=== PATIENT | female | born 1955 | race Caucasian/White ===

== ENCOUNTER 2024-10-28 18:16 | Inpatient (IN) | payer MEDICARE, BC, SELFPAY ==
[2024-10-28] VITALS (34 sets, daily range): BP systolic 125–162; BP diastolic 63–96; BMI 26.0
[2024-10-28 15:49] LABS: Glucose - Point of Care 108 mg/dl (70-99)
[2024-10-28 16:09] LABS: % Basophils 1.1 % (0-2); % Eosinophils 3.4 % (0-6); % Immature Granulocytes 0.3 % (0-0.5); % Lymphocytes 26.4 % (20.5-51.1); % Monocytes 11.8 % (1.7-9.3); Absolute Basophils 0.1 10^3/uL (0-0.2); Absolute Eosinophils 0.2 10^3/uL (0-0.7); Absolute Lymphocytes 1.9 10^3/uL (1.2-3.4); Absolute Monocytes 0.8 10^3/uL (0.1-0.6); Hematocrit 39.1 % (37.0-47.0); Hemoglobin 13.1 g/dL (12.0-16.0); Mean Corp Hgb Conc. 33.5 g/dL (33.0-37.0); Mean Corpuscular Hgb 29.5 pg (27.0-31.0); Mean Corpuscular Volume 88.1 fL (81.0-99.0); Mean Platelet Volume 10.8 fL (7.4-10.4); Nucleated Red Blood Cells % 0 %; Platelet Count 200 10^3/uL (130-400); Red Blood Cell Count 4.44 10^6/uL (4.20-5.40); Red Cell Dist. Width 12.9 % (11.5-14.5)
--- NOTE | 2024-10-28 16:15 | CON.NEURO ---
Neuro Assessment/Plan
Assessment
69 year old woman seen in stroke alert
presenting right facial droop, slurred speech, left sided numbness/ataxia, NIHSS 6, suspecting brainstem stroke
based on initial history of LKN last evening she was deemed not a TNK candidate, and advised full dose aspirin, loading plavix
however with new history that she was normal at 2:30 pm, she is now within the window and will be treated with TNK
Plan
tomorrow will start 21 days of DAPT after 24 hrs
Increase atorvastatin 40 mg
Admit to MICU for 24 hours of frequent neurochecks.�
neurochecks q1, Frequent vital signs Q15min x 2hrs, then Q30min x 6hrs, then Q1H x 16hrs until stable from the start of TNK.�
�tele, accuchecks/ISS. Repeat Head CT in 24 hours
Blood pressure goals: <180/105 and MAP 80-100� in the acute period.� If BP elevated for 2 readings, preferred agents include IV labetalol or nicardipine.� Vasopressors as necessary to maintain MAP and CPP.�
Glucose goals: Maintain euglycemia using sliding scale insulin. If glucose >180 for two consecutive readings, please use MICU insulin protocol.�
Temperature goals: maintain normothermia�
Diagnostic tests: MRI brain without contrast, ECHO with bubble.�
Consults: PT/OT/UNIVERSITY PROFESSOR/PMR/CM/SW/marketing traffic coordinator
Consultation
Order
Date of Consultation: 10/28/24
Requesting Provider:
Reason for Consult:
Subjective/Objective
Subjective Data
Date of Service: October 28, 2024
69 year old right handed woman seen during stroke alert
initial history was that she woke up 12:30 pm slurred speech, balance impaired, and last known normal was 9:30 pm last night before she went to bed; however several family members arrived later reporting they had long phone conversations with her up
until 2:30 pm
denies vision loss, double vision, limb weakness or numbness
no blood thinners
Objective Data
Vital Signs
Temp Pulse Resp
36.5 C 79 20
10/28/24 15:39 10/28/24 15:39 10/28/24 15:39
Lab Results
10/28/24 15:55
Patient Allergies
No Known Allergies Allergy (Verified 10/28/24 15:42)
CVA Assessment
NIH Stroke Score
Level of Consciousness: 0 - Alert
LOC Questions: 0-Answers both correctly
LOC Commands: 0-Performs both correctly
Best Horizontal Gaze: 0-Normal
Visual Lindsey: 0=Normal, no visual loss
Facial Palsy: 3=Complete paralysis
Motor - Right Arm: 0=No drift 10 seconds
Motor - Left Arm: 0=No drift 10 seconds
Motor - Right Le-No drift 5 seconds
Motor - Left Le-No drift 5 seconds
Limb Ataxia: 1-Present in one limb
Sensation: 1-Mild loss
Best Language: 0-No aphasia
Dysarthria: 1-Mild slurring
Extinction and Inattention: 0-No abnormality
Total Score:: 6
Physical Exam
-
AAOx3, +dysarthria, language intact
VFF, EOMI, no movement right lower face
LUE/DOMINGO 5-/5, RUE/LE full strength, normal bulk/tone
sensation decreased touch/pin LUE/LE
coordination: LUE ataxia;
Medications
-
Home Medications
�Medication �Instructions �Recorded
atorvastatin 10 mg tablet 10 mg PO DAILY 04/25/21
levothyroxine 25 mcg tablet 25 mcg PO UD 04/25/21
lorazepam 1 mg tablet 1 mg PO HS 04/25/21
trazodone 100 mg tablet 100 mg PO HS 04/25/21
famotidine 40 mg tablet (Pepcid) 40 mg PO HS 04/18/23
bupropion HCl 300 mg 24 hr tablet, 300 mg PO DAILY 10/28/24
extended release (Wellbutrin XL)
esomeprazole magnesium 40 mg 40 mg PO BID 10/28/24
capsule,delayed release (Nexium)
fluticasone furoate 100 1 inh inhalation R DAILY 10/28/24
mcg/actuation blister powder for
inhalation (Arnuity Ellipta)
--- NOTE | 2024-10-28 16:18 | ED.CVA ---
History of Present Illness
General
Chief Complaint: CVA/TIA Symptoms
Source: patient and family
Exam Limitations: none
Time Seen by Provider: 10/28/24 15:46
Nursing documentation reviewed up to this point in time: agreed with
Onset of Stroke Symptoms
Onset of symptoms known: No
Time pt last seen normal is known: Yes
Date last time pt seen normal: 11/27/24
Time last time pt seen normal: 16:30
History of Present Illness
History of Present Illness:
69-year-old female hyperlipidemia around 1230 today in the afternoon called family member she has slurred speech facial droop, brought in little bit ago seen in triage stroke alert called by nursing last seen normal yesterday afternoon no alcohol,
hyperlipidemia no prior stroke
4:40 PM called to room by nurse more information available family was on the phone with her from 213p-240p she apparently had clear speech
Past History
Past History
ED Past Medical History: Other (Previous bile duct stricture, partial thyroidectomy, oopherectomy, hypertension)
Social History
Tobacco: Non-smoker
Alcohol: None
Family History
Family History: Other (Father had a brain aneurysm)
Review of Systems
Review of Systems
All Other Systems: Not applicable
Respiratory: Reports no symptoms
Cardiac: Reports no symptoms
ABD/GI: Reports nausea
: Reports no symptoms
Skin: Reports no symptoms
Neurological: Reports no symptoms
Phy Exam
Physical Exam
Physical Exam:
Physical Exam
General: no apparent distress, not acutely ill
Neck: Positive facial droop
Heart: Rate
Lungs: no acute respiratory distress. clear bilaterally
Abdomen: normal bowel sounds. not tender. no CVAT
Neuro: alert and oriented. Aphasia
Skin: no rash
Psychiatric: cooperative
Extremities: no edema
Course
Orders/Labs/Results
Orders:
Orders
10/28/24 15:51
Electrocardiogram (*1) Stat
Reason for Study: Other
Other Reason for Exam: neuro symptoms
CT Brain Perfusion Urgent
Comment:
Reason For Exam: aphaia
CT HEAD STROKE ALERT W/o Cont Urgent
Comment:
Reason For Exam: aphaia
CT HEAD/NECK ANG STROKE ALERT Urgent
Comment:
Reason For Exam: aphaia
Bedside Glucose- Treatment ONCE
EKG- Treatment ONCE
IV Insert/Care/Rem.- Treatment PRN
10/28/24 15:55
Complete Blood Count/With Diff Urgent
Comprehensive Metabolic Panel Urgent
10/28/24 16:17
Aspirin 325 mg PO NOW STA
10/28/24 16:30
Aspirin Chewable [Low Strength Aspirin] 324 mg PO NOW STA
10/28/24 16:43
Tenecteplase [Tnkase] 16 mg Syringe [Syringe Non-Pump] 0 ml IV NOW
Provider explained risk/benefits to patient &/or caregiver?: Yes
Blood pressure: 155/79
10/28/24 17:26
Admit/Transfer Patient As Directed
Co-Sign Provider:
Level of Care: Inpatient admission
Assign to:: ICU
Physician / Group: Htay
Diagnosis: Acute Stroke
Reason for Hospitalization: TNK
Expected length of stay greater than two midnights?: Yes
ELOS- Estimated Length of Stay in days: 3
I certify the patient meets the requirements for IP care: Yes
10/28/24 17:27
PRN Pain Medication Management As Directed
May give lesser potent ordered pain med per pt: Yes
preference::
Protocol:: Medication orders for pain may be administered in a
manner that supports deferring to patient preference
when the pt is:
- Requesting an ordered lesser potent pain medication.
Least to most potent pain medications are defined
as: acetaminophen < NSAID < tramadol < opioids
(morphine, oxycodone, hydromorphone).
- Requesting a lesser dose of the same medication IF
ORDERED.
- Requesting a less intrusive route of administration
if both routes are prescribed by the provider (PO <
IV).
10/28/24 17:36
Code Status As Directed
Resuscitation Status: Full Code
10/28/24 18:00
Atorvastatin [Lipitor] 40 mg PO QPM
10/28/24 18:17
Acetaminophen [Tylenol] 650 mg PO Q4HPRN PRN
Dextrose 50%-Water [Dextrose 50% Syringe] 12.5 grams IV [id number] PRN
Glucagon [GlucaGen] 1 mg IM PRN PRN
Labetalol HCl [Trandate] 10 mg IV Q6HPRN PRN
10/28/24 18:17
Case Management Consult Once
Case Management Consult: Discharge Planning
DIETARY CONSULT Routine
Reason for Consult: stroke/TIA
Chronic Manager Consult Routine
Consulting Provider: Ilya Junior
Was physician already notified: Yes
NEUROLOGY CONSULT Urgent
Consulting Provider: Titi Wilson
Was physician already notified: Yes
Financial Services Auditor Urgent
Activity As Directed
Activity Level: Bathroom Privileges
Out of Bed- Chair
With Assistance
Comment: x 24hr post tenecteplase admin (and no PT/OT). then OOB as tolerated
Bedside Glucose Monitoring As Directed
Frequency: AC&HS
Additional Instructions:: Change to q6h if pt on TPN, tube feeding or not eating
Head of Bed-Restrictions As Directed
Elevation Level: 30 degress
Frequency: At all times
Comment: head of bed up 30 degrees for 24 hours
Hemetest Stools As Directed
Comment: hemoccult all stools if patient received tenecteplase
NIH Stroke Scale As Directed
Directions: Other
Comment: For Tenecteplase: NIH stroke Scale to be completed prior to administration, then every 1 hour for
2 hours, then every shift and with change in condition and/or mental status.
For IAT: NIH stroke scale to be completed at hand off, every 1 hour for 2 hours on arrival to ICU;
then every shift and with change in condition and/or mental status.
Neurological Checks As Directed
Frequency: Per unit guidelines
Additional Instructions:: after start of thrombolytic therapy and/or IAT:
q15min x 2 hrs, q30min x 6 hrs, q1h x 16 hrs, q4h x 24 hrs, then every shift and
with any changes.
Notify MD As Directed
Notify physician if: - Any deterioration, change in neurological status, development of severe headache,
nausea and vomiting, or with any signs of bleeding. (see guidelines for suspected
intracerebral hemorrhage).
- If intracranial hemorrhage is suspected or confirmed by imaging, anticipate need for
osmotic diuretic to maintain euvolemia.
Notify MD As Directed
Notify physician if: Glucose less than 70 or greater than 180.
Anticipate corrective insulin orders.
Notify MD As Directed
Notify physician if: SBP not at goal within 30 minutes of prn LABETALOL administration.
notify provider to initiate continuous infusion of nicardipine or clevidipine.
Notify MD As Directed
Notify physician if: unable to obtain MRI of head within 22-32 hours of tenecteplase administration and/or IAT
- contact Neurology for order for CT of head without contrast
Patient Education As Directed
Type: Stroke education packet
Comment: provide to patient and family
Pneumatic Compression Sleeves As Directed
Type: Knee high
Precautions As Directed
Type of Precautions: Bleeding
Comment: post Bleeding Precaution sign at bedside (if patient received tenecteplase)
Swallow Screening CVA/TIA ONLY As Directed
Comment: NPO until swallow screening completed
If patient FAILS swallow screening:: NPO and Speech consult and aspiration precautions
If patient PASSES swallow screening, diet:: Cholesterol Lowering
Above diet order entered?: No- failed screening
Thrombolytic Precautions As Directed
Thrombolytic Precautions:: Sumner bleeding precautions. Minimize invasive procedures and venipunctures,
avoid IM injections and over-handling patient, and check all puncture sites for
bleeding. Assess the patient and notify provider for signs and symptoms of
internal or serious bleeding, such as changes in vital signs or evidence of blood
in the urine or stool.
Additional instructions: Hemocult all stools.
Apply direct pressure or pressure dressing to any compressible puncture sites.
No ABG sampling or Zamarripa insertion after Tenecteplase administration for 24 hours,
unless directed by the Neurologist/Attending.
Vital Signs As Directed
Frequency: q15m
Call for:: BP greater than 180/105 mmHg or less than 100/60 mmHg
Additional Instructions:: after start of thrombolytic therapy and/or IAT:
q15min x 2 hrs, q30min x 6 hrs, q1h x 16 hrs, q4h x 24 hrs, then every shift and
with any changes.
O2 Therapy [RESP] Routine
Nasal Cannula Liter Flow: 2 LPM
Titrate/Wean O2 to maintain O2 sat greater than (%): 94
Comment: starting at 2L/min . Notify Physcian if greater than or equal to 6 L/min
Special Instructions: Titrate oxygen via nasal cannula starting at 2 liters/minute to keep SpO2 greater than
94%. Notify physician if greater than or equal to 6 liters/minute of O2.
Ot Eval And Treat Routine
Physiatry Consult Routine
Consulting Provider: Kelvin Culver
Was physician already notified: Yes
Reason for consult: stroke/TIA
Pt Eval And Treat Routine
Activity Level: Out of Bed-Early Mobility
Speech Therapy Eval & Treat Routine
DX Deep Vein Thrombosis Video Routine
10/28/24 22:00
Lorazepam [Ativan] 1 mg PO HS
Trazodone [Desyrel] 100 mg PO HS
10/29/24 03:02
Basic Metabolic Panel IN AM
Cardiovascular Evaluation IN AM
Complete Blood Count/No Diff IN AM
Glycohemoglobin (HgbA1c) IN AM
PTT IN AM
Prothrombin Time IN AM
10/29/24 06:00
Levothyroxine [Synthroid] 25 mcg PO DAILY@0600
10/29/24 07:30
Insulin Aspart Corrective Low [Novolog Flexpen-Low Resistance] See Protocol SC AC
10/29/24 08:00
Aspirin Low Dose EC [Aspir Low (Enteric Coated)] 81 mg PO DAILY
Aspirin Low Dose EC [Aspir Low (Enteric Coated)] 81 mg PO DAILY
Bupropion(24Hr)Extended Releas [WELLBUTRIN XL (24 hour extended release)] 300 mg PO DAILY
Clopidogrel Bisulfate [Plavix] 75 mg PO DAILY
Clopidogrel Bisulfate [Plavix] 75 mg PO DAILY
Abnormal Lab Results
10/28/24 10/28/24
15:47 15:55
MPV 10.8 H fL
(7.4-10.4)
Absolute Monos (auto) 0.8 H 10^3/uL
(0.1-0.6)
Monocytes % 11.8 H %
(1.7-9.3)
BUN 18 H mg/dl
(7-17)
Glucose 112 H mg/dl
(70-99)
POC Glucose 108 H mg/dl
(70-99)
10/28/24 15:55
10/28/24 15:55
Vital Signs
Initial and Last Documented VS:
Initial Vital Signs
Temp Pulse Resp
97.7 F 79 20
10/28/24 15:39 10/28/24 15:39 10/28/24 15:39
Last Documented Vital Signs
Temp Pulse Resp BP Pulse Ox
98.4 F 54 21 145/87 95
10/29/24 11:25 10/29/24 12:06 10/29/24 12:06 10/29/24 12:06 10/29/24 12:06
MDM/Problems Addressed
Differential Diagnosis Includes:
TIA stroke seizure with Dmitriy's paralysis mass
MDM/Problems Addressed:
Strokelike
Chronic conditions affecting care:
Hyperlipidemia
Acute Exacerbation and/or Progression of Chronic Illness:
Hyperlipidemia
*Radiology
Radiology exam reviewed: radiology read reviewed
*Pulse Oximetry
Patient hypoxic: no
*EKG
Interpreted by ED Provider?: Yes
Interpretation: normal
Comparison EKG: no comparison EKG present
Rate: normal
Ischemia: non-specific ST changes
*Software Recruiter Interpretation
Rate: normal
Interpretation: normal
Heart Rate: 78
Rhythm: sinus
*Critical Care Note
Total Time (30-74mins, 75-104mins- exclusive of procedures): 32
Update Note
Update Note:
The patient with a stroke not a TNK candidate due to timing
240, additional information from other family members she is within the 4 and half hour window,
Shared decision making myself nursing neurology family members knowledge 5% chance of significant bleeding with lytic therapy, will proceed no apparent contraindications
CRITICAL CARE STATEMENT: A total of 32 minutes of critical care time was provided for this patient. This includes management of unstable vital signs, evaluation of the patient at bedside, reviewing the patient's pertinent medical records discussion
with EMS providers and patient's family in addition to discussion with consultants, review of old EKGs and review of pertinent medical records. This time with separate from time utilized to perform the aforementioned documented procedures
ED Attending Note
-
Portions of this chart may have been created with voice recognition software.� Occasional wrong word or��sound alike� substitutions may have occurred due to the inherent limitations of voice recognition software.
Discharge Plan
Departure
Patient Disposition: Admit
Date of Disposition: 10/28/24
Time of Disposition: 16:17
Admit to: Telemetry
Presentation/result/management discussed w/ accepting MD/DO: Hospitalist
Patient with high blood pressure during this ER visit?: Yes
Condition: Good
Discharge Problem:
Acute CVA (cerebrovascular accident)
Interventions
Interventions:
*Risk Screen - Suicide Last Done: 10/28/24 15:39
*General Assessment Last Done: 10/28/24 15:39
*Neglect/Abuse Screening Last Done: 10/28/24 15:39
*ED COVID-19 Vaccine History Last Done: 10/28/24 20:00
*Nursing Disposition Last Done: 10/28/24 18:31
ED- Pulmonary Assessment Last Done: 10/28/24 15:44
ED- Cardiac Assessment Last Done: 10/28/24 15:44
[2024-10-28 16:26] LABS: ALT (SGPT) 14 U/L (0-35); AST (SGOT) 21 U/L (14-36); Albumin 3.9 g/dl (3.5-5.0); Alkaline Phosphatase 63 U/L (38-126); Blood Urea Nitrogen 18 mg/dl (7-17); Carbon Dioxide 24 mmol/L (22-30); Chloride 103 mmol/L (98-107); Estimated Creatinine Clearance 55 ml/min; Glucose 112 mg/dl (70-99); Potassium 4.3 mmol/L (3.5-5.1); Sodium 136 mmol/L (135-145); Total Bilirubin 0.4 mg/dl (0.2-1.3); Total Protein 6.4 g/dl (6.3-8.2); eGFR > 60.00
[2024-10-28] MEDS: TNKASE 3.2 MG IV (16:59)
--- NOTE | 2024-10-28 17:45 | HPS.HSE ---
Family Physician
-
Family Physician: INTERVIEWE UNKNOWN - PT NOT
Chief Complaint
-
Stroke Symptoms
History of Present Illness
Patient is a 69 y/o female past medical history of hyperlipidemia, follicular lymphoma, hypothyroidism and anxiety who presents with stroke symptoms. Patient states around 3pm she developed difficulty with speech. Apparently family spoke to her on
the phone around 2:30 as speech was normal. Upon arrival to the ED she was noted to have right facial droop, and slurred speech. Stroke alert was called and patient was evaluated by Neurology. Patient received TNK in the emergency department for
NIH of 6.
Medical History
Past Medical History
Past Medical History: Reports Other
Additional Past Medical History:
Mild Intermittent Reactive Airway Disease
Hyperlipidemia
Post-Surgical Hypothyroidism
Anxiety/Insomnia
Follicular Lymphoma s/p Immunotherapy
Melanoma
Past Surgical History: Reports Other
Additional Past Surgical History:
Thyroidectomy
Laryngeal Tumor Resection
Appendectomy
Oophorectomy
Section
Tonsillectomy
Social History
Tobacco: Non-smoker
Alcohol: None
Family History
Family History: Not pertinent
Allergies / Home Medications
Allergies reflects when Allergies were last updated in [employer].
Home Medications with original date entered in [employer]
Allergy/Medication List:
Allergies
Allergy/AdvReac Type Severity Reaction Status Date / Time
No Known Allergies Allergy Verified 10/28/24 15:42
Home Medications
atorvastatin 10 mg tablet 10 mg PO DAILY 04/25/21
levothyroxine 25 mcg tablet 25 mcg PO UD 04/25/21
lorazepam 1 mg tablet 1 mg PO HS 04/25/21
trazodone 100 mg tablet 100 mg PO HS 04/25/21
bupropion HCl 300 mg 24 hr tablet, extended release (Wellbutrin XL) 300 mg PO DAILY 10/28/24
esomeprazole magnesium 40 mg capsule,delayed release (Nexium) 40 mg PO DAILYPRN PRN gerd 10/28/24
fluticasone furoate 100 mcg/actuation blister powder for inhalation (Arnuity Ellipta) 1 inh inhalation R DAILYPRN PRN sob 10/28/24
Review of Systems
-
Unable to obtain full review of systems at this time due to: Acuity
Physical Exam
Vital Signs
Vital Signs
Temp Pulse Resp BP Pulse Ox
97.7 F 60 18 156/76 98
10/28/24 15:39 10/28/24 17:30 10/28/24 17:30 10/28/24 17:30 10/28/24 17:30
Physical Exam
General: Comfortable and Conversant (Slurred Speech)
HEENT: Anicteric and Moist mucous membranes
Respiratory: Clear and Non Labored Respirations
Cardiac: S1/S2 and Regular Rhythm
GI: Soft and Non Tender
Rectal: Deferred by Provider
Musculoskeletal: No Clubbing, No Cyanosis and No Edema
Skin: Warm and Dry
Neuro: Awake, Alert, Oriented, Slurred Speech and Facial Droop (Right)
Psych: Calm
Laboratory Results
-
10/28/24 15:55
10/28/24 15:55
Laboratory Results
Total Bilirubin 0.4 mg/dl (0.2-1.3) 10/28/24 15:55
AST 21 U/L (14-36) 10/28/24 15:55
ALT 14 U/L (0-35) 10/28/24 15:55
Alkaline Phosphatase 63 U/L (38-126) 10/28/24 15:55
Data Reviewed
-
Lab Data: Labs Reviewed by me
Impression/Plan
-
Right Facial Droop/Slurred Speech, likely acute stroke - Patient received TNK in ED
-Consult Neurology and Puttier
-Admit to ICU for frequent Neuro-Checks
-Start aspirin and Plavix 24 hours after TNK
-Obtain Brain MRI 24 hours after TKN
-Check HgbA1c and FLP
-Check Echo
Hypertension
-Permissive Hypertension for 24 hours, goal BP <180/105
-Will use labetalol prn
Hyperlipidemia
-Increase atorvastatin 40mg Daily
Post-Surgical Hypothyroidism
-Continue levothyroxine
Anxiety/Insomnia
-Continue lorazepam, Wellbutrin and trazodone
DVT proph: SCDs
Code Status: Full Code
[2024-10-28] MEDS: LOW STRENGTH ASPIRIN 324 MG PO (18:03)
--- NOTE | 2024-10-28 18:36 | W.PN.UPDATE ---
Update Note
Progress Note Update
This note serves as an addendum to the H&P by sample sewer OLLIE Alba JOHNSON
HPI
69F Rt handed HX hyperlipidemia, follicular lymphoma, hypothyroidism and anxiety seen at ER
- pw stroke symptoms
- around 3pm she developed difficulty with speech.
- Apparently family spoke to her on the phone around 2:30 as speech was normal.
Upon arrival to the ED she was noted to have right facial droop, and slurred speech. Stroke alert was called and patient was evaluated by Neurology.
Patient received TNK in the emergency department for NIH of 6.
PHX; se above
Reviewed VS:
Vital Signs
Temp Pulse Resp BP Pulse Ox
97.7 F 72 16 162/85 96
10/28/24 15:39 10/28/24 18:31 10/28/24 18:31 10/28/24 18:31 10/28/24 18:30
PE
General: Conversant but expressive dysphasic and slurred speech
HEENT: Moist mucous membranes
Respiratory: Clear and Non Labored Respirations
Cardiac: S1/S2 and Regular Rhythm
GI: Soft and Non Tender
Rectal: Deferred by Provider
MS: No Edema
Skin: Warm and Dry
Neuro: Awake, Alert, Oriented, Slurred Speech and Facial Droop (Right)
Psych: Calm
Abnormal Lab Results
10/28/24 10/28/24
15:47 15:55
MPV 10.8 H
Absolute Monos (auto) 0.8 H
Monocytes % 11.8 H
BUN 18 H
Glucose 112 H
POC Glucose [address] Brain Perfusion
NECK CTA:
1. No CTA evidence for internal carotid artery stenosis or occlusion.
2. 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
3. 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
4. Moderate discogenic degenerative disease at C5/C6 with a disc-osteophyte complex causing mild spinal cord compression, mild central canal stenosis, and severe left neural foraminal narrowing.
HEAD CTA:
1. 50-70% diameter stenosis in the clinoid segment of the left ICA.
2. 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
3. Moderate hypoplasia of the basilar artery.
4. 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
5. Less than 50% diameter stenosis in the left vertebral artery.
EKG
NORMAL SINUS RHYTHM
NORMAL ECG
WHEN COMPARED WITH ECG OF 18-MAY-2021 09:41,
NO SIGNIFICANT CHANGE WAS FOUND
ASSESSMENT & PLAN
Acute CVA Lt MCA territory with Rt facial droop/slurred Speech
Rt handed lady
- s/p TNK in ED
- admit to ICU for Post TNK protocol
- frequent Neuro-Checks
- aspirin and Plavix 24 hours after TNK
- Obtain Brain MRI 24 hours after TKN
- Check HgbA1c and FLP
- Check Echo
- Consult Neurology and Optical Instrument Assembler
Essential Hypertension
-Permissive Hypertension for 24 hours, goal BP <180/105
-Will use labetalol prn
Hyperlipidemia
-Increase atorvastatin 40mg Daily
Post-Surgical Hypothyroidism
-Continue levothyroxine
Anxiety/Insomnia
-Continue lorazepam, Wellbutrin and trazodone
DVT proph: SCDs
Code Status: Full Code
ICU
Total Critical Care Time___65__ minutes.
I was immediately available to the patient and staff. I personally examined, reviewed labs, diagnostic images/reports, interpretations, treatment plans, discussed patient care with other providers and family or caregivers (if patient is unable
to make decisions), entered orders as appropriate and documented the medical record.
--- NOTE | 2024-10-28 19:16 | PTCARENOTE ---
Update with Exchange Operator COMMUNICATIONS STRATEGIST. Update critical care nursing with NIH at bedside. Update neurology NIH follow up. Repeat cat scan and will follow neuro assessment. ED hand off at bedside. Update VS trends and ongoing plan of cares.
--- NOTE | 2024-10-28 20:00 | W.PN.UPDATE ---
Update Note
Progress Note Update
10/28/24
190- Patient having constant dull headache (patient denies any headache history), no acute changes in NIH/stroke symptoms, no acute changes in vital signs SBP 140s. Dr. Wilson, neurologist updated, recommendations received ordered STAT Ctscan of the
head.
Ctscan head- negative
--- NOTE | 2024-10-28 20:38 | PTCARENOTE ---
Received pt at 1900 from katelyn RN. Pt. reported mild, dull headache to katelyn who then contacted neuro. Orders for stat head CT- pt. transported in bed by [address] Returned to room, pt reports headache improving but still mildly present.
NIH handoff completed = 10. See documentation. Frequent neuro checks ongoing per protocol. SB/SR on tele, HR high 50s-60s. BP 140s-160s/60s-80s. No edema. Afebrile. SCDs placed. On RA, lungs CTA. Spo2 96%. + bowel sounds. Reports LBM today. Purewick
in place. Call valladares in reach
[2024-10-28] MEDS: LIPITOR PO (21:29)
[2024-10-28] MEDS: TYLENOL/FEVERALL 650 MG RECTAL (22:19)
[2024-10-28] MEDS: ATIVAN PO (22:20)
[2024-10-28] MEDS: DESYREL PO (22:20)
[2024-10-28 23:26] LABS: Glucose - Point of Care 89 mg/dl (70-99)
--- NOTE | 2024-10-28 23:57 | PTCARENOTE ---
Pt. reassessed. C/O R neck/base of head stiffness/pain that increases when she turns her head, COMIC ARTIST notified. Instructed to apply heat and monitor. Pt. repositioned in bed (was lying on right side). Reports some improvement with repositioning. Was
given rectal tylenol for previous headache -pt reports mild improvement in BRANDT. Neuro checks ongoing. Pt. reports sensation is now equal in B/L LEs. Otherwise, no changes. Vitals stable
[2024-10-29] VITALS (34 sets, daily range): BP systolic 105–180; BP diastolic 54–124; BMI 26.5
--- NOTE | 2024-10-29 03:28 | PTCARENOTE ---
Pt reassessed. Mild improvement in facial droop. Otherwise, neuro checks unchanged. Reports BRANDT and neck pain improved. Pt. resting but having reports difficulty falling asleep between frequent neuro checks. AM labs drawn
[2024-10-29 03:33] LABS: Hematocrit 35.1 % (37.0-47.0); Hemoglobin 12.1 g/dL (12.0-16.0); Mean Corp Hgb Conc. 34.5 g/dL (33.0-37.0); Mean Corpuscular Volume 86.9 fL (81.0-99.0); Mean Platelet Volume 10.9 fL (7.4-10.4); Platelet Count 182 10^3/uL (130-400); Red Blood Cell Count 4.04 10^6/uL (4.20-5.40); Red Cell Dist. Width 12.8 % (11.5-14.5); White Blood Cell Count 7.3 10^3/uL (4.8-10.8)
[2024-10-29 03:47] LABS: INR 1.01; PT 13.6 Sec (11.4-14.6)
[2024-10-29 03:48] LABS: APTT 28.9 Sec (23.4-35.0)
[2024-10-29] MEDS: NSS 1000 IV ×2 (03:54→19:12)
[2024-10-29 03:59] LABS: Blood Urea Nitrogen 15 mg/dl (7-17); Calcium 8.8 mg/dl (8.4-10.2); Carbon Dioxide 26 mmol/L (22-30); Chloride 104 mmol/L (98-107); Estimated Creatinine Clearance 49 ml/min; Glucose 89 mg/dl (70-99); HDL Cholesterol 56 mg/dl; LDL Cholesterol, Calculated 110 mg/dl; Potassium 4.1 mmol/L (3.5-5.1); Sodium 136 mmol/L (135-145); Total Cholesterol 187 mg/dl (50-199); Triglyceride 107 mg/dl (10-149); Very Low Density Lipoprotein 21 mg/dl (0-30); eGFR > 60.00
[2024-10-29] MEDS: TYLENOL/FEVERALL 650 MG RECTAL (05:50)
[2024-10-29] MEDS: SYNTHROID PO (05:50)
[2024-10-29 06:26] LABS: Glucose - Point of Care 88 mg/dl (70-99)
--- NOTE | 2024-10-29 07:17 | CON.INTV ---
Consultation
Consultation Request
Date/Time Consultation Requested: 10/29/24
Date/Time Consultation Performed: 10/29/24
Performing Provider: Gavino
Reason for Consultation: CVA
Medical History
-
History of Present Illness:
Patient is a 69 year old female with past medical history of hyperlipidemia, follicular lymphoma, hypothyroidism and anxiety presenting to ER with acute dysarthria at 3pm on the day of admission. She was last reportedly normal at 2:30 PM. On
stroke alert was called and she was ruled in with an NIH score of 6. Stroke alert was called and she was given TNK on 10/28/2024. She is admitted to ICU status post treatment for acute stroke management.
Past Medical History
Past Medical History: Hypercholesterolemia and Hypothyroidism
Past Surgical History: Appendectomy, Gynecological, Tonsilectomy and Other
Social History
Tobacco: Non-smoker
Alcohol: None
Drug: None
Family History
Family History: Reviewed & Not Pertinent
Allergies / Home Medications
Allergies
Allergy/AdvReac Type Severity Reaction Status Date / Time
No Known Allergies Allergy Verified 10/28/24 15:42
Home Medications
�Medication �Instructions �Recorded �Confirmed �Last Taken �Type
atorvastatin 10 mg tablet 10 mg PO DAILY 04/25/21 10/28/24 10/28/24 History
levothyroxine 25 mcg tablet 25 mcg PO UD 04/25/21 10/28/24 10/28/24 History
50 mg
lorazepam 1 mg tablet 1 mg PO HS 04/25/21 10/28/24 04/21/23 21:00 History
trazodone 100 mg tablet 100 mg PO HS 04/25/21 10/28/24 04/21/23 21:00 History
bupropion HCl 300 mg 24 hr tablet, 300 mg PO DAILY 10/28/24 10/28/24 10/28/24 History
extended release (Wellbutrin XL)
esomeprazole magnesium 40 mg 40 mg PO DAILYPRN PRN gerd 10/28/24 10/28/24 Unknown History
capsule,delayed release (Nexium)
fluticasone furoate 100 1 inh inhalation R DAILYPRN PRN sob 10/28/24 10/28/24 Unknown History
mcg/actuation blister powder for
inhalation (Arnuity Ellipta)
Review of Systems
-
History Source: Patient
All other systems: Negative unless noted
Vitals / Labs / Diagnostic Testing
Vital Signs
Temp Pulse Resp BP Pulse Ox
97.9 F 56 19 135/64 94
10/29/24 03:40 10/29/24 07:00 10/29/24 07:00 10/29/24 07:00 10/29/24 07:00
Lab Data
10/29/24 03:02
10/29/24 03:02
Laboratory Results
10/29/24
03:02
PT 13.6
INR 1.01
APTT 28.9
Diagnostic Testing:
Physical Exam
-
HEENT: Normocephalic, Anicteric and Other (R facial droop noted)
Cardiovascular: S1/S2 and Regular Rhythm
Respiratory: Clear and Non-Labored Respirations
GI: Soft, Non Distended and Normal Bowel Sounds
Neurology: Awake, Alert, Oriented and Other (weakness R side)
Skin: Warm, Dry and Good Color
General: Comfortable and Other (NAD)
Assessment
-
Patient is a 69 year old female with past medical history of hyperlipidemia, follicular lymphoma, hypothyroidism and anxiety presenting to ER with acute dysarthria at 3pm on the day of admission. She was last reportedly normal at 2:30 PM. On
stroke alert was called and she was ruled in with an NIH score of 6. Stroke alert was called and she was given TNK on 10/28/2024. She is admitted to ICU status post treatment for acute stroke management.
Acute CVA s/p TNK 10/28/24
Hypertension, 162/85 (peak)
Dysarthria
Right facial droop
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
Mild Intermittent Reactive Airway Disease
Hyperlipidemia
Post-Surgical Hypothyroidism
Anxiety/Insomnia
Follicular Lymphoma s/p Immunotherapy
Melanoma
Thyroidectomy
Laryngeal Tumor Resection
Appendectomy
Oophorectomy
Section
Tonsillectomy
Plan
S/p TNK for CVA 10/28/24
Observe overnight following administration, careful watch for signs of bleeding
Follow CBC, neurovascular checks
Repeat MRI today 10/29/24 in PM
Prior cardiac history includes HTN
Unclear if this was the cause, peak systolic BP 160s
Cardiac eval in place
Prior h/o lung disease: history of possible RAD, maintained on inhalers-Arnuity
Resume
CXR clear, no acute process
Can obtain OP FU if needed
Insomnia noted, would check PSG due to CVA history
Aspiration precautions
CXR reviewed
Restart diet per protocol
GI ppx
Speech eval
PT/OT
Creat at baseline, follow UO
No signs/symptoms suspicious for infectious etiology at this time.
Will observe off antibiotics for now.
DVT ppx held, SCDs
If doing well, can transfer to floors pending MRI
We will leave her contact in chart for sleep evaluation as outpatient
Diagnostic Data
Chest X-Ray: 10/28/24- No active cardiopulmonary disease.
CT Scan:
HCT 10/28/24- 1. No CT evidence for acute intracranial hemorrhage or transcortical infarct.
2. Mild bilateral frontal and parietal lobe volume loss.
H&N - 1. No CTA evidence for internal carotid artery stenosis or occlusion. 2. 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 3. 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 4. Moderate discogenic
degenerative disease at C5/C6 with a disc-osteophyte complex causing mild spinal cord compression, mild central canal stenosis, and severe left neural foraminal narrowing.
1. 50-70% diameter stenosis in the clinoid segment of the left ICA. 2. 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 3. Moderate hypoplasia of the basilar artery.
4. 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 5. Less than 50% diameter stenosis in the left vertebral artery.
Echo:
PFT's:
Reports and relevant images were personally reviewed.
-----
Critical care time 50 mins -- this includes review of history, physical exam, medications, hemodynamic/ventilator parameters, laboratory data, imaging and discussion with house staff, pharmacy, respiratory therapy, networking specialist, and nursing.
--- NOTE | 2024-10-29 09:00 | CON.MD ---
Documented by User: Anne Ramirez PA-C 10/29/24 16:22
Consultation - Medical
-
Referring Provider:�Dennis Bruner
Chief Complaint:�CVA with right sided weakness
�
History of Present Illness:�69 year old Female with PMH of (GERD, anxiety, HLD, hypothyroidism, follicular lymphoma) presented to the ED with acute onset dysarthria on the day of admission, ataxia and RUE weakness. stroke alert was called and she
was ruled in with an NIH score of 6. She was given TNK on 10/28/2024. She is admitted to ICU status post treatment for acute stroke management. Symptoms slowly resolving, 50-70% diameter stenosis in the clinoid segment of the left ICA, managed for
CVA. MRI of the brain to be repeated on 10/29/2024
CT scan of Head - 10/29-�No CT evidence for acute intracranial hemorrhage or transcortical infarct. Mild bilateral frontal and parietal lobe volume loss.
HEAD/Neck CTA:
1. 50-70% diameter stenosis in the clinoid segment of the left ICA.
2. 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
3. Moderate hypoplasia of the basilar artery.
4. 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
5. Less than 50% diameter stenosis in the left vertebral artery.
Echo EF 60-65%, no embolic sourse, no PFA
Chest X-Ray: 10/28/24- No active cardiopulmonary disease.
Past Medical History:�GERD, anxiety, HLD, post-surgical hypothyroidism, follicular lymphoma s/p immunotherapy, laryngeal tumor resection, mild intermittent reactive airway disease
Procedure History:�Appendectomy, Gynecological, Tonsillectomy, thyroidectomy, laryngeal tumor resection, , oophorectomy,
Family History:�not pertinent
�
Social History:�
Functional Level Premorbidly:�Independent with all activities�
Functional Level Currently:�not evaluated by therapy yet
�
Tobacco:�Denies�
Alcohol:�Denies�
Drug use:�Denies�
�
Lives with:�son
24-hour assistance available:�
Number of floors:�2
# steps to enter:�
# steps to second floor: 4 steps to landing then 8 more
Potential First floor set up:�can sleep on couch, bathroom on 1st floor
Driving:�yes
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
�
�
Allergies:�
Allergy/AdvReac Type Severity Reaction Status Date / Time
No Known Allergies Allergy Verified 10/28/24 15:42
�
Review of Systems:�
Constitutional: (x) Normal _
Eye: (x) Normal _
Ear/Nose/Throat: (x) AbNormal _dysphagia
Respiratory: (x) abNormal _ mild intermittent reactive airway disease
Cardiovascular: (x) Normal _
Gastrointestinal: (x) Normal _
Genitourinary: (x) Normal _
Musculoskeletal: (x) AbNormal _ right UE and LE weakness
Integumentary: (x) Normal _
Neurologic: (x) AbNormal _ cva, aphasia
Psychiatric: (x) Normal _
Endocrine: (x) Normal _
Hematologic/Lymphatic: (x) Normal _
Allergic/Immunologic: (x) Normal _
�
Medications:�
Active Current Visit Medication List
Category Date Time Status
0.9% Sodium Chloride 1000 ml [Nss] 1,000 ml Med 10/29/24 03:45 Active
IV 80 mls/hr
Acetaminophen [Tylenol/Feverall] Med 10/28/24 21:38 Active
650 mg RECTAL Q4HPRN PRN
Acetaminophen [Tylenol] Med 10/28/24 18:17 Active
650 mg PO Q4HPRN PRN
Aspirin Low Dose EC [Aspir Low (Enteric Coated)] Med 10/29/24 08:00 Active
81 mg PO DAILY
Atorvastatin [Lipitor] Med 10/28/24 18:00 Active
40 mg PO QPM
Bupropion(24Hr)Extended Releas [WELLBUTRIN XL (24 hour Med 10/29/24 08:00 Active
extended release)]
300 mg PO DAILY
Clopidogrel Bisulfate [Plavix] Med 10/29/24 08:00 Active
75 mg PO DAILY
Dextrose 50%-Water [Dextrose 50% Syringe] Med 10/28/24 18:17 Active
12.5 grams IV [id number] PRN
Flush (0.9% Sodium Chloride) [Flush (Nss)] Med 10/28/24 19:00 Active
See Dose Instructions IV PER PROTOCOL
Glucagon [GlucaGen] Med 10/28/24 18:17 Active
1 mg IM PRN PRN
Insulin Aspart Corrective Low [Novolog Flexpen-Low Med 10/29/24 06:00 Active
Resistance]
See Protocol SC Q6
Labetalol HCl [Trandate] Med 10/28/24 18:17 Active
10 mg IV Q6HPRN PRN
Levothyroxine [Synthroid] Med 10/29/24 06:00 Active
25 mcg PO DAILY@0600
Lorazepam [Ativan] Med 10/28/24 22:00 Active
1 mg PO HS
Trazodone [Desyrel] Med 10/28/24 22:00 Active
100 mg PO HS
�
Vitals:�
Temp Pulse Resp BP Pulse Ox
98.4 F 57 15 169/86 96
10/29/24 15:16 10/29/24 15:00 10/29/24 15:00 10/29/24 15:00 10/29/24 15:00
Height 5 ft 1 in
Actual Weight 63.5 kg
Body Mass Index (BMI) 26.5
Physical Exam:�
General Appearance/Observation: Well-developed, well-nourished individual in no apparent distress.�
Pain/Comfort Assessment: Denies�
Mood/Affect: Appropriate, pleasant
�
Integumentary/Operative Site:�
�� Pressure Ulcer Evaluation: absent over heels. dry skin bottom of feet�
��
��Other Type of Wound: absent�
��
Eyes: Conjunctiva/Lids: normal���� Pupils: pupils equal round and reactive to light and Accommodation�
Ears/Nose/Throat: oral mucosa moist,� throat clear.������������ Lips/Teeth/Gums: normal�
Neck: No muscle spasm or tenderness�
Cardiovascular: Heart: regular, murmur�
Pulses: dorsalis pedis 2+ bilaterally�
Respiratory: Respiratory Effort/Chest Expansion: normal������� Auscultation: Clear to auscultation bilaterally�
Gastrointestinal: abdomen not tender, no distension, normal abdominal bowel sounds
Genitourinary: No Zamarripa�
Extremities:�Edema: None�Cyanosis: None�Trophic�changes: None
�
Neurology Exam:
Orientation: Alert, Oriented to self, Time, Place�
Memory: Intact for immediate medical concerns
Comprehension: Intact
Two step command: Intact
Naming: Intact
Cranial Nerves:
�� CNII:�Pupillary light reflex: Intact����Visual Field: impaired on the right- not able to tell number of fingers
�� CN III, IV, : Extraocular muscles: Intact�
�� CN V:�Facial Sensation�at�Forehead: Intact,�Maxilla: Intact,�Mandible: Intact
�� CN VII:�Facial movement: some weakness on the right
�� CN VIII:�Hearing: Normal
�� CN IX/X:�Speech & swallow: aphasia, low volume�Position of Uvula: Midline
�� CN XI:�Shoulder shrug: slight weakness on the right
�� CN XII:�Tongue protrusion: Midline
Sensory:
�� Light touch: Hypoesthesia globally in RLE in comparison to the left
��
Reflexes:
�� Biceps: 2+ bilaterally
�� Brachioradialis: 2+ bilaterally
�� Triceps: 2+ bilaterally
�� Patellar: 2+ bilaterally
�� Achilles:absent bilaterally
�� Babinski: Down going bilaterally
�� Clonus: None
�� Leanne: Negative bilaterally�
Cerebellar: Dysmetria/Ataxia: mild positive on the right for finger to nose coordination
Musculoskeletal:
Motor: (Manual muscle scale 0-5)�
Muscle SA EF WE EE FF FA HF KE DF EHL PF
Right� 3+ 3+ 3+ 3+ 3 3 4 4 4
Left 5 5 5 5 5 5 4 4 5 5 5
�
Tone: Normal in all extremities�
Range of Motion: Passively within normal limits in all extremities�
�
Lab Results
Labs
WBC 7.3 10^3/uL (4.8-10.8) 10/29/24 03:02
RBC 4.04 10^6/uL (4.20-5.40) L 10/29/24 03:02
Hgb 12.1 g/dL (12.0-16.0) 10/29/24 03:02
Hct 35.1 % (37.0-47.0) L 10/29/24 03:02
MCV 86.9 fL (81.0-99.0) 10/29/24 03:02
MCH 30.0 pg (27.0-31.0) 10/29/24 03:02
MCHC 34.5 g/dL (33.0-37.0) 10/29/24 03:02
RDW 12.8 % (11.5-14.5) 10/29/24 03:02
Plt Count 182 10^3/uL (130-400) 10/29/24 03:02
MPV 10.9 fL (7.4-10.4) H 10/29/24 03:02
Abs Immat Gran (auto) 0.0 10^3/uL (0-0.05) 10/28/24 15:55
Absolute Neuts (auto) 4.0 10^3/uL (1.4-6.5) 10/28/24 15:55
Absolute Lymphs (auto) 1.9 10^3/uL (1.2-3.4) 10/28/24 15:55
Absolute Monos (auto) 0.8 10^3/uL (0.1-0.6) H 10/28/24 15:55
Absolute Eos (auto) 0.2 10^3/uL (0-0.7) 10/28/24 15:55
Absolute Basos (auto) 0.1 10^3/uL (0-0.2) 10/28/24 15:55
Immature Gran % 0.3 % (0-0.5) 10/28/24 15:55
Neutrophils % 57.0 % (42.2-75.2) 10/28/24 15:55
Lymphocytes % 26.4 % (20.5-51.1) 10/28/24 15:55
Monocytes % 11.8 % (1.7-9.3) H 10/28/24 15:55
Eosinophils % 3.4 % (0-6) 10/28/24 15:55
Basophils % 1.1 % (0-2) 10/28/24 15:55
Nucleated RBC % 0 % 10/28/24 15:55
PT 13.6 Sec (11.4-14.6) 10/29/24 03:02
INR 1.01 10/29/24 03:02
APTT 28.9 Sec (23.4-35.0) 10/29/24 03:02
Sodium 136 mmol/L (135-145) 10/29/24 03:02
Potassium 4.1 mmol/L (3.5-5.1) 10/29/24 03:02
Chloride 104 mmol/L (98-107) 10/29/24 03:02
Carbon Dioxide 26 mmol/L (22-30) 10/29/24 03:02
BUN 15 mg/dl (7-17) 10/29/24 03:02
Creatinine 0.9 mg/dL (0.6-1.0) 10/29/24 03:02
Estimated Creat Clear 49 ml/min 10/29/24 03:02
eGFR > 60.00 10/29/24 03:02
Glucose 89 mg/dl (70-99) 10/29/24 03:02
Hemoglobin A1c 5.6 % (4.0-5.6) 10/29/24 03:02
Calcium 8.8 mg/dl (8.4-10.2) 10/29/24 03:02
Total Bilirubin 0.4 mg/dl (0.2-1.3) 10/28/24 15:55
AST 21 U/L (14-36) 10/28/24 15:55
ALT 14 U/L (0-35) 10/28/24 15:55
Alkaline Phosphatase 63 U/L (38-126) 10/28/24 15:55
Total Protein 6.4 g/dl (6.3-8.2) 10/28/24 15:55
Albumin 3.9 g/dl (3.5-5.0) 10/28/24 15:55
Triglycerides 107 mg/dl (10-149) 10/29/24 03:02
Total Cholesterol 187 mg/dl (50-199) 10/29/24 03:02
LDL Cholesterol, Calc 110 mg/dl 10/29/24 03:02
VLDL Cholesterol, Calc 21 mg/dl (0-30) 10/29/24 03:02
HDL Cholesterol 56 mg/dl 10/29/24 03:02
TSH 2.41 uIU/ml (0.47-4.68) 10/29/24 03:02
POC Glucose 88 mg/dl (70-99) 10/29/24 11:15
�
Diagnostic Results:�as per HPI�
�
Assessment:
�
Plan�
�PT/OT to increase independence with ADLs, improve balance, coordination, endurance, strength, mobility, community reintegration, decreased burden of care on others and family education.�
�
CVA: Secondary prophylaxis with aspirin and Plavix for 21 days (last dose 11/19/2023) followed by _?___ lifelong, statin, and blood pressure control (SBP less than 180 and diastolic less than 100 to participate with therapy for ischemic stroke).
Continue to monitor neurologic status.�
right dominant hemiparesis: High risk for falls and sliding out of chair/bed. Safety reinforced.�
- Avoid using affected arm to help lift or pull patient as this will cause trauma to the shoulder.
Dysphagia: speech evaluation, aspiration precautions.� Advance diet as tolerated. Puree, thin liquids.�Had video swallow test today- no penetration or aspirations- Can have regular solids with thin liquids�
Dysarthria: speech evaluation�
Aphasia: speech evaluation.
HTN: continue medications, monitor closely�
HLD: Atorvastatin 40 mg every afternoon
mild intermittent reactive airway disease: maintained on inhalers-Arnuity
Cervical DJD:disc-osteophyte complex causing mild spinal cord compression, mild central canal stenosis, and severe left neural foraminal narrowing
Coronary artery disease�: Aspirin, statin, beta-brooke�
Hypothyroidism: levothyroxine�25 mcg daily 600
Psych: Psychology consult.� Wellbutrin XL 300 mg daily. Lorazepam 1 mg at bedtime
Insomnia: trazodone 100 mg at bedtime
Skin: monitor for pressure sores/rashes/lesions.�
Pain: acetaminophen as needed.�
Bowel: Colace and Senna, PRN bisacodyl.�
Bladder: Time void, PVRs, PRN straight cath.�
GI Prophylaxis: Pantoprazole- would recommend
DVT Prophylaxis: mechanical. No anticoagulation yet
Pulmonary: Incentive spirometry�
Safety: Continue to reinforce assistance with all transfers.�
Code Status:� Full code
Dispo�(date/plan/equipment needs): Home with family care.� Social history reviewed.�
�
Functional and Medical Goals:�Modified Independent with ADL�s, ambulation, transfers�
Discharge Destination:�Not evaluated by therapy yet due to receiving tnp. Based on her current deficits she may benefit from acute inpatient rehabilitation unless she significantly improves with PT/OT prior to discharge
�
Summary of recommendations:
CVA: Secondary prophylaxis with aspirin and Plavix for 21 days (last dose 11/19/2023) followed by _?___ lifelong, statin, and blood pressure control (SBP less than 180 and diastolic less than 100 to participate with therapy for ischemic stroke).
Continue to monitor neurologic status.�MRI of Brain to be done today-pending
right dominant hemiparesis: High risk for falls and sliding out of chair/bed. Safety reinforced.�
- Avoid using affected arm to help lift or pull patient as this will cause trauma to the shoulder.
Skin: monitor for pressure sores/rashes/lesions.�
Pain: acetaminophen as needed.�
Bowel: recommend-Colace and Senna, PRN bisacodyl.�
Skin: monitor for pressure sores/rashes/lesions.�Would recommend multi podus boot for right leg
��
Thank you for allowing me to care for your patient. Please contact me with any questions or concerns.

Documented by User: Kelvin Culver MD 10/29/24 21:46
Consultation - Medical
-
Referring Provider:�Dennis Bruner
Chief Complaint:�CVA with right sided weakness
�
History of Present Illness:�69 year old Female with PMH of (GERD, anxiety, HLD, hypothyroidism, follicular lymphoma) presented to the ED with acute onset dysarthria on the day of admission, ataxia and RUE weakness. stroke alert was called and she
was ruled in with an NIH score of 6. She was given TNK on 10/28/2024. She is admitted to ICU status post treatment for acute stroke management. Symptoms slowly resolving, 50-70% diameter stenosis in the clinoid segment of the left ICA, managed for
CVA. MRI of the brain to be repeated on 10/29/2024
CT scan of Head - 10/29-�No CT evidence for acute intracranial hemorrhage or transcortical infarct. Mild bilateral frontal and parietal lobe volume loss.
HEAD/Neck CTA:
1. 50-70% diameter stenosis in the clinoid segment of the left ICA.
2. 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
3. Moderate hypoplasia of the basilar artery.
4. 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
5. Less than 50% diameter stenosis in the left vertebral artery.
Echo EF 60-65%, no embolic sourse, no PFA
Chest X-Ray: 10/28/24- No active cardiopulmonary disease.
Past Medical History:�GERD, anxiety, HLD, post-surgical hypothyroidism, follicular lymphoma s/p immunotherapy, laryngeal tumor resection, mild intermittent reactive airway disease
Procedure History:�Appendectomy, Gynecological, Tonsillectomy, thyroidectomy, laryngeal tumor resection, , oophorectomy,
Family History:�not pertinent
�
Social History:�
Functional Level Premorbidly:�Independent with all activities�
Functional Level Currently:�not evaluated by therapy yet
�
Tobacco:�Denies�
Alcohol:�Denies�
Drug use:�Denies�
�
Lives with:�juan Schofield
24-hour assistance available:�Possibly, her 1 son works at night and other son works during the day.
Number of floors:�2
# steps to enter:�2
# steps to second floor: 4 steps to landing then 8 more
Potential First floor set up:�can sleep on couch, bathroom on 1st floor
Driving:�yes
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
�
�
Allergies:�
Allergy/AdvReac Type Severity Reaction Status Date / Time
No Known Allergies Allergy Verified 10/28/24 15:42
�
Review of Systems:�
Constitutional: (x) abNormal _fatigue
Eye: (x) Normal _
Ear/Nose/Throat: (x) AbNormal _dysphagia
Respiratory: (x) abNormal _ mild intermittent reactive airway disease
Cardiovascular: (x) Normal _
Gastrointestinal: (x) Normal _no bowel movement since being in the hospital but denies any nausea or vomiting
Genitourinary: (x) Normal _
Musculoskeletal: (x) AbNormal _ right UE and LE weakness
Integumentary: (x) Normal _
Neurologic: (x) AbNormal _ cva, aphasia, difficulty with balance and walking
Psychiatric: (x) Normal _
Endocrine: (x) Normal _
Hematologic/Lymphatic: (x) Normal _
Allergic/Immunologic: (x) Normal _
�
Medications:�
Active Current Visit Medication List
Category Date Time Status
0.9% Sodium Chloride 1000 ml [Nss] 1,000 ml Med 10/29/24 03:45 Active
IV 80 mls/hr
Acetaminophen [Tylenol/Feverall] Med 10/28/24 21:38 Active
650 mg RECTAL Q4HPRN PRN
Acetaminophen [Tylenol] Med 10/28/24 18:17 Active
650 mg PO Q4HPRN PRN
Aspirin Low Dose EC [Aspir Low (Enteric Coated)] Med 10/29/24 08:00 Active
81 mg PO DAILY
Atorvastatin [Lipitor] Med 10/28/24 18:00 Active
40 mg PO QPM
Bupropion(24Hr)Extended Releas [WELLBUTRIN XL (24 hour Med 10/29/24 08:00 Active
extended release)]
300 mg PO DAILY
Clopidogrel Bisulfate [Plavix] Med 10/29/24 08:00 Active
75 mg PO DAILY
Dextrose 50%-Water [Dextrose 50% Syringe] Med 10/28/24 18:17 Active
12.5 grams IV [id number] PRN
Flush (0.9% Sodium Chloride) [Flush (Nss)] Med 10/28/24 19:00 Active
See Dose Instructions IV PER PROTOCOL
Glucagon [GlucaGen] Med 10/28/24 18:17 Active
1 mg IM PRN PRN
Insulin Aspart Corrective Low [Novolog Flexpen-Low Med 10/29/24 06:00 Active
Resistance]
See Protocol SC Q6
Labetalol HCl [Trandate] Med 10/28/24 18:17 Active
10 mg IV Q6HPRN PRN
Levothyroxine [Synthroid] Med 10/29/24 06:00 Active
25 mcg PO DAILY@0600
Lorazepam [Ativan] Med 10/28/24 22:00 Active
1 mg PO HS
Trazodone [Desyrel] Med 10/28/24 22:00 Active
100 mg PO HS
�
Vitals:�
Temp Pulse Resp BP Pulse Ox
98.4 F 57 15 169/86 96
10/29/24 15:16 10/29/24 15:00 10/29/24 15:00 10/29/24 15:00 10/29/24 15:00
Height 5 ft 1 in
Actual Weight 63.5 kg
Body Mass Index (BMI) 26.5
Physical Exam:�
General Appearance/Observation: Well-developed, well-nourished female in no apparent distress.�
Pain/Comfort Assessment: Denies�
Mood/Affect: Appropriate, pleasant
�
Integumentary/Operative Site:�
�� Pressure Ulcer Evaluation: absent over heels. dry skin bottom of feet�
Eyes: Conjunctiva/Lids: normal���� Pupils: pupils equal round and reactive to light and Accommodation�
Ears/Nose/Throat: oral mucosa moist,� throat clear.������������ Lips/Teeth/Gums: normal�
Cardiovascular: Heart: regular, murmur�
Pulses: dorsalis pedis 2+ bilaterally�
Respiratory: Respiratory Effort/Chest Expansion: normal������� Auscultation: Clear to auscultation bilaterally�
Gastrointestinal: abdomen not tender, no distension, normal abdominal bowel sounds
Genitourinary: No Zamarripa�
Extremities:�Edema: None�Cyanosis: None�Trophic�changes: None
�
Neurology Exam:
Orientation: Alert, Oriented to self, Time, Place�
Memory: Intact for immediate medical concerns
Comprehension: Intact
Two step command: Intact
Naming: Intact
Cranial Nerves:
�� CNII:�Pupillary light reflex: Intact����Visual Field: impaired on the right- not able to tell number of fingers
�� CN III, IV, : Extraocular muscles: Intact�
�� CN V:�Facial Sensation�at�Forehead: Decreased on right,�Maxilla: Decreased on right,�Mandible: Decreased on right
�� CN VII:�Facial movement: weakness on the right
�� CN VIII:�Hearing: Normal
�� CN IX/X:�Speech & swallow: expressive aphasia, low volume�Position of Uvula: Midline
�� CN XI:�Shoulder shrug: mild weakness on the right
�� CN XII:�Tongue protrusion: Midline
Sensory:
�� Light touch: Hypoesthesia globally right side comparison to the left
��
Reflexes:
�� Biceps: 2+ bilaterally
�� Brachioradialis: 2+ bilaterally
�� Triceps: 2+ bilaterally
�� Patellar: 2+ bilaterally
�� Achilles: absent bilaterally
�� Babinski: Down going bilaterally
�� Clonus: None
�� Leanne: Negative bilaterally�
Cerebellar: Dysmetria/Ataxia: mild dysmetria on the right
Musculoskeletal: Motor: (Manual muscle scale 0-5)�
Muscle SA EF WE EE FF FA HF KE DF EHL PF
Right� 3+ 3+ 2 3+ 3+ 2 3 3 4 4 4
Left 5 5 5 5 5 5 4 4 5 5 5
�
Tone: Normal in all extremities�
Range of Motion: Passively within normal limits in all extremities�
�
Lab Results
Labs
WBC 7.3 10^3/uL (4.8-10.8) 10/29/24 03:02
RBC 4.04 10^6/uL (4.20-5.40) L 10/29/24 03:02
Hgb 12.1 g/dL (12.0-16.0) 10/29/24 03:02
Hct 35.1 % (37.0-47.0) L 10/29/24 03:02
MCV 86.9 fL (81.0-99.0) 10/29/24 03:02
MCH 30.0 pg (27.0-31.0) 10/29/24 03:02
MCHC 34.5 g/dL (33.0-37.0) 10/29/24 03:02
RDW 12.8 % (11.5-14.5) 10/29/24 03:02
Plt Count 182 10^3/uL (130-400) 10/29/24 03:02
MPV 10.9 fL (7.4-10.4) H 10/29/24 03:02
Abs Immat Gran (auto) 0.0 10^3/uL (0-0.05) 10/28/24 15:55
Absolute Neuts (auto) 4.0 10^3/uL (1.4-6.5) 10/28/24 15:55
Absolute Lymphs (auto) 1.9 10^3/uL (1.2-3.4) 10/28/24 15:55
Absolute Monos (auto) 0.8 10^3/uL (0.1-0.6) H 10/28/24 15:55
Absolute Eos (auto) 0.2 10^3/uL (0-0.7) 10/28/24 15:55
Absolute Basos (auto) 0.1 10^3/uL (0-0.2) 10/28/24 15:55
Immature Gran % 0.3 % (0-0.5) 10/28/24 15:55
Neutrophils % 57.0 % (42.2-75.2) 10/28/24 15:55
Lymphocytes % 26.4 % (20.5-51.1) 10/28/24 15:55
Monocytes % 11.8 % (1.7-9.3) H 10/28/24 15:55
Eosinophils % 3.4 % (0-6) 10/28/24 15:55
Basophils % 1.1 % (0-2) 10/28/24 15:55
Nucleated RBC % 0 % 10/28/24 15:55
PT 13.6 Sec (11.4-14.6) 10/29/24 03:02
INR 1.01 10/29/24 03:02
APTT 28.9 Sec (23.4-35.0) 10/29/24 03:02
Sodium 136 mmol/L (135-145) 10/29/24 03:02
Potassium 4.1 mmol/L (3.5-5.1) 10/29/24 03:02
Chloride 104 mmol/L (98-107) 10/29/24 03:02
Carbon Dioxide 26 mmol/L (22-30) 10/29/24 03:02
BUN 15 mg/dl (7-17) 10/29/24 03:02
Creatinine 0.9 mg/dL (0.6-1.0) 10/29/24 03:02
Estimated Creat Clear 49 ml/min 10/29/24 03:02
eGFR > 60.00 10/29/24 03:02
Glucose 89 mg/dl (70-99) 10/29/24 03:02
Hemoglobin A1c 5.6 % (4.0-5.6) 10/29/24 03:02
Calcium 8.8 mg/dl (8.4-10.2) 10/29/24 03:02
Total Bilirubin 0.4 mg/dl (0.2-1.3) 10/28/24 15:55
AST 21 U/L (14-36) 10/28/24 15:55
ALT 14 U/L (0-35) 10/28/24 15:55
Alkaline Phosphatase 63 U/L (38-126) 10/28/24 15:55
Total Protein 6.4 g/dl (6.3-8.2) 10/28/24 15:55
Albumin 3.9 g/dl (3.5-5.0) 10/28/24 15:55
Triglycerides 107 mg/dl (10-149) 10/29/24 03:02
Total Cholesterol 187 mg/dl (50-199) 10/29/24 03:02
LDL Cholesterol, Calc 110 mg/dl 10/29/24 03:02
VLDL Cholesterol, Calc 21 mg/dl (0-30) 10/29/24 03:02
HDL Cholesterol 56 mg/dl 10/29/24 03:02
TSH 2.41 uIU/ml (0.47-4.68) 10/29/24 03:02
POC Glucose 88 mg/dl (70-99) 10/29/24 11:15
�
Diagnostic Results:�as per HPI�
�
Assessment:
69 y/o F PMH (GGERD, anxiety, HLD, post-surgical hypothyroidism, follicular lymphoma s/p immunotherapy, laryngeal tumor resection, mild intermittent reactive airway disease) with 10/28/2024 dysarthria aphasia, ataxia and right-sided weakness s/p TNK
with 50-70% diameter stenosis in the clinoid segment of the left ICA with ADL, ambulatory, and speech dysfunction
�
Plan�
PT/OT to increase independence with ADLs, improve balance, coordination, endurance, strength, mobility, community reintegration, decreased burden of care on others and family education.�
�
CVA: Secondary prophylaxis with aspirin and Plavix for 21 days (last dose 11/19/2023) followed by _?___ lifelong, statin, and blood pressure control (SBP less than 180 and diastolic less than 100 to participate with therapy for ischemic stroke).
Continue to monitor neurologic status.�
Right dominant hemiparesis: High risk for falls and sliding out of chair/bed. Safety reinforced.�
- Avoid using affected arm to help lift or pull patient as this will cause trauma to the shoulder.
Dysphagia: speech, aspiration precautions.� Advance diet as tolerated. Puree, thin liquids.�Had video swallow test today- no penetration or aspirations- Can have regular solids with thin liquids�
Dysarthria: speech �
Aphasia: speech
HTN: Off medications, permissive hypertension, monitor closely�
HLD: Atorvastatin 40 mg every afternoon
mild intermittent reactive airway disease: maintained on inhalers-Arnuity
Cervical DJD:disc-osteophyte complex causing mild spinal cord compression, mild central canal stenosis, and severe left neural foraminal narrowing
Coronary artery disease�: Aspirin, statin, beta-brooke�
Hypothyroidism: levothyroxine�25 mcg daily 600
Psych: Psychology consult.� Wellbutrin XL 300 mg daily. Lorazepam 1 mg at bedtime
Insomnia: trazodone 100 mg at bedtime
Skin: monitor for pressure sores/rashes/lesions.�
Pain: acetaminophen as needed.�
Bowel: Colace and Senna, PRN bisacodyl.�
Bladder: Time void, PVRs, PRN straight cath.�
GI Prophylaxis: Pantoprazole suggested
DVT Prophylaxis: mechanical suggest Lovenox chemoprophylaxis when cleared by neurology
Pulmonary: Incentive spirometry�
Safety: Continue to reinforce assistance with all transfers.�
Code Status:� Full code
Dispo�(date/plan/equipment needs): Home with family care.� Social history reviewed.�
Functional and Medical Goals:�Modified Independent with ADL�s, ambulation, transfers�
Discharge Destination:�Not evaluated by therapy yet due to receiving tnp. Based on her current deficits she may benefit from acute inpatient rehabilitation unless she significantly improves with PT/OT prior to discharge
A total of 60 minutes were spent with the patient preparing for the evaluation, obtaining history, performing examination and evaluation, counseling, data review, case management, care coordination, order editor, and EMR documentation.�
Attending Statement:
I saw and examined the patient today. Reviewed care plan with patient, therapy, nursing, and physician senior assistant manager. I agree with the above subjective and physical exam, and plan as documented by IVAN Ramirez with adjustments made as necessary.
Summary of recommendations:
CVA: Secondary prophylaxis with aspirin and Plavix for 21 days (last dose 11/19/2023) followed by _?___ lifelong, statin, and blood pressure control (SBP less than 180 and diastolic less than 100 to participate with therapy for ischemic stroke).
Continue to monitor neurologic status.�MRI of Brain to be done today-pending
right dominant hemiparesis: High risk for falls and sliding out of chair/bed. Safety reinforced.�
- Avoid using affected arm to help lift or pull patient as this will cause trauma to the shoulder.
Skin: monitor for pressure sores/rashes/lesions.�
Pain: acetaminophen as needed.�
Bowel: recommend-Colace and Senna, PRN bisacodyl.�
Skin: monitor for pressure sores/rashes/lesions.�Would recommend multipodus boot for right leg
GI Prophylaxis: Pantoprazole suggested
DVT Prophylaxis: mechanical suggest Lovenox chemoprophylaxis when cleared by neurology
��
Thank you for allowing me to care for your patient. Please contact me with any questions or concerns.
[2024-10-29] MEDS: WELLBUTRIN XL (24 hour extended release) PO (09:12)
[2024-10-29 09:13] LABS: TSH 2.41 uIU/ml (0.47-4.68)
--- NOTE | 2024-10-29 09:15 | PTCARENOTE ---
Rec'd care of patient at 0700. NIH completed at handoff. NIH- 9. Patient alert and oriented. Right facial droop present. Right sided weakness and decreased sensation. Pupils equal and reactive. C/o blurred vision. NSR/SB on tele monitor. Rate in the
50-60's. No edema. Palpable pulses. Lung sounds cta on RA. +BS. Last BM 10/28. Purewick in place for urinary incontinence. IVFs infusing through peripheral INT. VSS. Neurologist at bedside. RN advised not to give Aspirin and Plavix. Speech cleared
patient for IDDSI4 diet with thins. VSE ordered.
[2024-10-29] MEDS: ASPIR LOW (ENTERIC COATED) PO (09:24)
[2024-10-29] MEDS: PLAVIX PO (09:25)
--- NOTE | 2024-10-29 09:47 | PTCARENOTE ---
ECHO being completed at bedside.
--- NOTE | 2024-10-29 10:04 | PTCARENOTE ---
bubble study done with Tarsha technical inspector.
--- NOTE | 2024-10-29 10:30 | PTOTSP ---
Speech Language Pathology
VIDEOFLUOROSCOPIC SWALLOWING EXAMINATION (VSE) completed. Oropharyngeal WFL. No significant pharyngeal residue noted. No penetration or aspiration noted with any consistencies trialed.
Recommend:
(1) Regular solids/thin liquids
(2) General aspiration precautions
(3) Meds as tolerated
(4) CHANNEL WORKER to continue to follow
[2024-10-29 11:03] LABS: Glycohemoglobin (HgbA1c) 5.6 % (4.0-5.6)
[2024-10-29 11:27] LABS: Glucose - Point of Care 88 mg/dl (70-99)
--- NOTE | 2024-10-29 11:32 | PTOTSP ---
Dysphagia Evaluation
Patient with signs concerning for possible oral/pharyngeal dysphagia without signs of aspiration, admitted with concern for brain stem CVA. Video swallow study warranted to objectively assess pharyngeal stage of swallowing, r/o silent aspiration,
and develop tx plan.
Dysarthria/dysphonia noted. Full speech/language/cognitive evaluation to be completed as able/appropriate.
Recommend:
1. L4 Puree, Thin Liquids
2. Medications: medications crushed in puree
3. Video swallow study
4. Speech/language/cognitive evaluation as appropriate
--- NOTE | 2024-10-29 11:45 | PTCARENOTE ---
Patient passed VSE. Diet advanced to regular. No s/s aspiration. Strength improving. Patient assisting with turns in bed. Purewick removed and patient utilizing bedpan for voiding needs. VSS. No other changes in assessment.
--- NOTE | 2024-10-29 12:24 | W.PN.NEURO.1 ---
Today's Communication / Plan
-
.
Subjective/Objective
Subjective Data
Date of Service: October 29, 2024
Neurology Follow Up Note.
HPI: This is a 69-year-old right-handed woman who presented to [facility] on 10/28/2024 with dysarthria, right hemiparesis and imbalance.
Ms. Burns was treated with IV TNK om 10/28/24 at 16:59
The patient reports no headaches, change in vision or strength since the presentation.
VS: 140/92, 79-53, afebrile
EKG: NSR, QTc Int : 450 ms
PDMP:Lorazepam 1 Mg�60 tabs filled in on 09/11/2024, 10/15/2024
Labs: LDL 110, HbA1C 5.6
CT head wo contrast-moderate bifrontal atrophy
CTA head/neck-50-70% stenosis in the clinoid segment of the left ICA.
TTE-no PFO, intracardiac mass or thrombus.
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
PSH: 4 , bilateral cataract surgery, thyroidectomy right cheek melanoma resection, L oophorectomy, Laryngeal Tumor resection
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
FH: Mother�lung cancer, father, son-hand tremor
All: Aspirin�GI intolerance
ROS:Constitutional: Positive for 20 pound weight loss
HENT: Negative for ear pain, hearing loss, tinnitus and trouble swallowing.
Eyes: Negative. Negative for photophobia, pain and visual disturbance.
Respiratory: Negative for cough, choking and shortness of breath.
Cardiovascular: Negative for chest pain, palpitations and leg swelling.
Gastrointestinal: Positive for dysphagia
Endocrine: Negative. Negative for cold intolerance.
Genitourinary: Negative for dysuria, flank pain and urgency.
Musculoskeletal: Negative for back pain, gait problem, neck pain and neck stiffness.
Skin: Negative for rash.
Allergic/Immunologic: Negative. Negative for immunocompromised state.
Neurological: Positive for right-sided weakness.
Psychiatric/Behavioral: Positive for insomnia, anxiety
General: Well developed. In no acute distress.
Cardio: Regular rate and rhythm without murmur. Extremities are without cyanosis or edema.
Neuro:
Mental Status: Alert, oriented to person, place, and date. Increased processing time. Intermittent expressive aphasia. Anxious mood. Good fund of knowledge. Follows complex requests across the midline. Comprehension, naming, and repetition
intact.
Cranial Nerves: Pupils are equally round, surgical. EOMs full. Visual uribe full to confrontation. No ptosis. No nystagmus. V1-V3 intact to light touch and pinprick bilaterally, symmetric. Face symmetric. Normal hearing AU. The palate
elevated well. SCMs and traps 5/5. Tongue midline. No dysarthria.
Motor: Normal bulk and tone. No pronator or arm drift. Strength 5/5 throughout. No clonus.
Reflexes: neg grasp BL
Sensory: Normal pinprick, vibration and JPS.
Coordination: No dysmetria, action BL hand tremor
Gait: deferred
Assessment and Plan:
I. Acute L lacunar clumsy-hand dysarthria s-me
II. 50-70% stenosis in the clinoid segment of the left ICA.
III. History of mesenteric follicular lymphoma, melanoma
-Continue Telemetry monitoring.
-Aspiration precautions
-Start Plavix 75 mg QD at 4:59 PM today if no contraindications. The patient is reportedly intolerant to aspirin
-Lipitor 40 mg QHS.
-Brain MRI without mohinder
-Cardiology consult
-PT.
-DVT prophylaxis.
I personally reviewed all radiology and labs along with past medical records pertinent to current medical problems. Total time spent in patient care is 45 minutes.
Thank you for allowing us to participate in the care of this patient. We will continue to follow. Please do not hesitate to contact us with any questions or concerns.
Objective Data
Vital Signs
Temp Pulse Resp BP Pulse Ox
36.9 C 54 21 145/87 95
10/29/24 11:25 10/29/24 12:06 10/29/24 12:06 10/29/24 12:06 10/29/24 12:06
Lab Results
10/29/24 03:02
10/29/24 03:02
PT 13.6 Sec (11.4-14.6) 10/29/24 03:02
INR 1.01 10/29/24 03:02
APTT 28.9 Sec (23.4-35.0) 10/29/24 03:02
Sodium 136 mmol/L (135-145) 10/29/24 03:02
Potassium 4.1 mmol/L (3.5-5.1) 10/29/24 03:02
BUN 15 mg/dl (7-17) 10/29/24 03:02
Glucose 89 mg/dl (70-99) 10/29/24 03:02
Calcium 8.8 mg/dl (8.4-10.2) 10/29/24 03:02
LDL Cholesterol, Calc 110 mg/dl 10/29/24 03:02
Patient Allergies
No Known Allergies Allergy (Verified 10/28/24 15:42)
Vital Signs and Labs
-
Vital Signs and Labs:
Vital Signs
Temp Pulse Resp BP Pulse Ox
36.9 C 54 21 145/87 95
10/29/24 11:25 10/29/24 12:06 10/29/24 12:06 10/29/24 12:06 10/29/24 12:06
Lab Results
10/29/24 03:02
10/29/24 03:02
PT 13.6 Sec (11.4-14.6) 10/29/24 03:02
INR 1.01 10/29/24 03:02
APTT 28.9 Sec (23.4-35.0) 10/29/24 03:02
Sodium 136 mmol/L (135-145) 10/29/24 03:02
Potassium 4.1 mmol/L (3.5-5.1) 10/29/24 03:02
BUN 15 mg/dl (7-17) 10/29/24 03:02
Glucose 89 mg/dl (70-99) 10/29/24 03:02
Calcium 8.8 mg/dl (8.4-10.2) 10/29/24 03:02
LDL Cholesterol, Calc 110 mg/dl 10/29/24 03:02
Medications
-
Medications:
Generic Name Dose Route Start Last Admin
Trade Name Freq PRN Reason Stop Dose Admin
Acetaminophen 650 mg 10/28/24 18:17
Acetaminophen 325 Mg Tablet PO 11/25/24 18:16
Q4HPRN PRN
BRANDT, mild pain, or temp >100.4F
Acetaminophen 650 mg 10/28/24 21:38 10/29/24 05:50
Acetaminophen 650 Mg Rectal Suppository RECTAL 11/25/24 21:37 650 mg
Q4HPRN PRN Administration
fever>100.3/mild pain
Aspirin 81 mg 10/29/24 08:00 10/29/24 09:24
Aspirin 81 Mg (Enteric Coated) Tablet PO 11/26/24 07:59 Not Given
DAILY PATRICA
Atorvastatin Calcium 40 mg 10/28/24 18:00 10/28/24 21:29
Atorvastatin (Lipitor) 40 Mg Tablet PO 11/25/24 17:59 Not Given
QPM PATRICA
Bupropion HCl 300 mg 10/29/24 08:00 10/29/24 09:12
Bupropion (24hr) Extended Release 300 Mg Tablet PO 11/26/24 07:59 Not Given
DAILY PATRICA
Clopidogrel Bisulfate 75 mg 10/29/24 08:00 10/29/24 09:25
Clopidogrel 75 Mg Tablet PO 11/18/24 08:01 Not Given
DAILY PATRICA
Dextrose 12.5 grams 10/28/24 18:17
Dextrose 50% (0.5 Grams/Ml) 50 Ml Syringe IV 11/25/24 18:16
[id number] PRN
hypoglycemia
Protocol
Glucagon 1 mg 10/28/24 18:17
Glucagon 1 Mg Vial IM 11/25/24 18:16
PRN PRN
hypoglycemia
Protocol
Sodium Chloride 1,000 mls @ 80 mls/hr 10/29/24 03:45 10/29/24 03:54
Nss IV 1,000 mls
.[id number] PATRICA Administration
Insulin Aspart 0 units 10/29/24 06:00 10/29/24 11:33
Insulin Aspart Low Resistance 300 Units/3 Ml Pen.Injctr SC 11/26/24 05:59 Not Given
Q6 PATRICA
Protocol
Labetalol HCl 10 mg 10/28/24 18:17
Labetalol Hcl 5 Mg/1 Ml (20 Mg/4 Ml) Injection IV 11/25/24 18:16
Q6HPRN PRN
BP > 180/105 mmHg
Levothyroxine Sodium 25 mcg 10/29/24 06:00 10/29/24 05:50
Levothyroxine 25 Mcg Tablet PO 11/26/24 05:59 Not Given
DAILY@0600 PATRICA
Lorazepam 1 mg 10/28/24 22:00 10/28/24 22:20
Lorazepam 1 Mg Tablet PO 11/25/24 21:59 Not Given
HS PATRICA
Sodium Chloride 0 flush 10/28/24 19:00
Sodium Chloride 0.9% (Flush) Syringe IV 11/25/24 18:59
PER PROTOCOL PATRICA
Trazodone HCl 100 mg 10/28/24 22:00 10/28/24 22:20
Trazodone 100 Mg Tablet PO 11/25/24 21:59 Not Given
HS PATRICA
Home Medications
-
Home Medications
atorvastatin 10 mg tablet 10 mg PO DAILY High Cholesterol 04/25/21
levothyroxine 25 mcg tablet 25 mcg PO UD Thyroid 04/25/21
lorazepam 1 mg tablet 1 mg PO HS Mental Health/Anxiety 04/25/21
trazodone 100 mg tablet 100 mg PO HS Mental Health/Anxiety 04/25/21
bupropion HCl 300 mg 24 hr tablet, extended release (Wellbutrin XL) 300 mg PO DAILY Mental Health/Anxiety 10/28/24
esomeprazole magnesium 40 mg capsule,delayed release (Nexium) 40 mg PO DAILYPRN PRN gerd 10/28/24
fluticasone furoate 100 mcg/actuation blister powder for inhalation (Arnuity Ellipta) 1 inh inhalation R DAILYPRN PRN sob 10/28/24
[2024-10-29] MEDS: TYLENOL 650 MG PO ×2 (13:12→19:15)
--- NOTE | 2024-10-29 14:07 | CM ---
CM following re: discharge planning.
Discussed in Rounds, reviewed pt's chart, met with pt and pt's son Buddy at bedside.
Pt is a 69 year old female, admitted with primary dx of Acute CVA s/p TNK 10/28/24.
Pt reports she lives with a son in a 2SH, 2 steps to enter, has 4 supportive children. 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 No DME, VN or SNF history.
ST evaluations noted - skilled services recommended. PT and OT evaluations pending due to pt received TNK on 10/28/24. Per pt if PT/OT recommend acute rehab she prefers [facility] [facility].
PCP: Moy Garcia
Pharmacy: [facility].
D/C pl;an: probably [facility]. Awaiting for PT/OT revaluations and recommendations.
CM will follow with discharge plan updates as hospitalization progresses
--- NOTE | 2024-10-29 15:07 | W.PN.HOSP.TC ---
Today's Communication/Plan
-
MRI brain
MRA neck
Assessment / Plan
Assessment / Plan
69yo F with PMHx GERD, anxiety, HLD, hypothyroidism came with acute onset of dysarthria and RUE weekness, s/p tPa in ED, symptoms slowly resolving, 50-70% diameter stenosis in the clinoid segment of the left ICA, managed for CVA
A/P:
#CVA
telemetry without clinically significant arrhythmia
Echo EF 60-65%, no embolic sourse, no PFA
permissive HTN, then improve control
MRI
Neurology follow up
ASA, Plavix, statin
LDL 110
HgbA1c 5.6%
TSH 2.41
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
PT/OT
CTA with vasculopathy
#50-70% diameter stenosis in the clinoid segment of the left ICA
ASA, statin
MRA neck
#Essential HTN
adjust meds before d/c
#Hypothyroidism
cont synthroid
#DJD
disc-osteophyte complex causing mild spinal cord compression, mild central canal stenosis, and severe left neural foraminal narrowing
DVT ppx SCDs
Full code
I have spent at least 59min reviewing chart, test results, communication with consultants and direct patient care
Anticipated Discharge: > 48 hours
Subjective/Interval History
-
Date of Service: October 29, 2024
Objective Data
-
Labs:
Laboratory Results
10/29/24
03:02
WBC 7.3
Hgb 12.1
Hct 35.1 L
Plt Count 182
PT 13.6
INR 1.01
APTT 28.9
Sodium 136
Potassium 4.1
Chloride 104
Carbon Dioxide 26
BUN 15
Creatinine 0.9
Glucose 89
Calcium 8.8
Vital Signs:
Vital Signs
Temp Pulse Resp BP Pulse Ox
98.4 F 55 15 177/91 97
10/29/24 11:25 10/29/24 13:09 10/29/24 13:09 10/29/24 13:09 10/29/24 13:09
I&O
10/28/24 10/29/24 10/30/24
06:59 06:59 06:59
Intake Total 160 / 240 560 / 560
Output Total 500 / 500
Balance -340 / -260 560 / 560
Review of Systems
-
History Source: Patient
All other systems: Reviewed and negative
Physical Exam
-
General: No Apparent Distress
Respiratory: Clear to Auscultation
Cardiac: Regular Rhythm
Skin: Warm
Neuro: Awake, Alert, Oriented, AO x 3 and Slurred Speech
Psych: Calm
--- NOTE | 2024-10-29 16:30 | PTCARENOTE ---
Patient resting comfortably. Family at bedside. Minor changes in assessment. Movement in RUE improved. Transported to MRI for brain/neck MRI.
[2024-10-29] MEDS: LIPITOR 40 MG PO (18:14)
[2024-10-29 18:24] LABS: Glucose - Point of Care 80 mg/dl (70-99)
[2024-10-29] MEDS: ZOFRAN 4 MG IV (20:20)
[2024-10-29] MEDS: DESYREL 100 MG PO (20:21)
[2024-10-29] MEDS: ATIVAN 1 MG PO (20:21)
--- NOTE | 2024-10-29 21:04 | PTCARENOTE ---
Pt received at 19:00, NIH = 6. slight decreased sensation on the right, slight R facial droop, slow/slurred speech, R sided weakness. Pt with increased anxiety approx 20:00--tearful, anxious, nauseous, chest tightness. EKG = NSR. Received scheduled
ativan/trazodone early per AUTOMATIC FOLDER SEAMER, prn zofran added and given. Pt states relief. Pt discussed and his passing--tearful with discussion, stated that after talking about him she felt much better.
[2024-10-29 21:49] LABS: Glucose - Point of Care 85 mg/dl (70-99)
[2024-10-30] VITALS (25 sets, daily range): BP systolic 110–177; BP diastolic 57–128; PULSE 63; O2SAT 97; BMI 25.6
[2024-10-30] MEDS: TYLENOL 650 MG PO ×2 (00:03→21:57)
[2024-10-30] MEDS: LIDOCAINE 4% PATCH 1 PATCH TOPICAL (00:30)
[2024-10-30 04:50] LABS: Hematocrit 35.5 % (37.0-47.0); Mean Corp Hgb Conc. 33.8 g/dL (33.0-37.0); Mean Corpuscular Hgb 29.7 pg (27.0-31.0); Mean Corpuscular Volume 87.9 fL (81.0-99.0); Mean Platelet Volume 10.7 fL (7.4-10.4); Platelet Count 165 10^3/uL (130-400); Red Blood Cell Count 4.04 10^6/uL (4.20-5.40); Red Cell Dist. Width 12.7 % (11.5-14.5); White Blood Cell Count 5.3 10^3/uL (4.8-10.8)
[2024-10-30 05:14] LABS: Blood Urea Nitrogen 12 mg/dl (7-17); Calcium 7.8 mg/dl (8.4-10.2); Carbon Dioxide 27 mmol/L (22-30); Chloride 109 mmol/L (98-107); Estimated Creatinine Clearance 64 ml/min; Glucose 94 mg/dl (70-99); Sodium 140 mmol/L (135-145); eGFR > 60.00
[2024-10-30] MEDS: SYNTHROID 25 MCG PO (06:42)
--- NOTE | 2024-10-30 07:00 | PTCARENOTE ---
Woke pt up for handoff NIH. She is very pleasant. Slow speech with right facial droop and some drooling noted. NIH-6. Slight loss of sensation on her right side, and her right face on the corner of her mouth. She is stating her vision seems to be
more blurred than her baseline. Right upper visual field cut. She stated if felt like she was looking through a hole. Ataxia on her right upper and lower extremities. SB 50's. IVF continues as ordered. Lungs CTA. +BSX4. C/O constipation and uses
miralax daily for BM. SHe has not had a BM in 2 days and is concerned. She also stated she did not need Wellbutrin, that she is just sad and NOT depressed. She was informed that wellbutrin requires tapering and that it is not safe to just stop. She
verbalized her understanding. Safe environment maintained.
--- NOTE | 2024-10-30 07:12 | W.PN.INTV ---
Today's Communication / Plan
Recommendations
Stable on RA, MRI reviewed
Further post CVA management including speech/PT ongoing
DAPT, statin continued
Transfer to floors, we will sign off upon transfer
Assessment
-
Patient is a 69 year old female with past medical history of hyperlipidemia, follicular lymphoma, hypothyroidism and anxiety presenting to ER with acute dysarthria at 3pm on the day of admission. She was last reportedly normal at 2:30 PM. On
stroke alert was called and she was ruled in with an NIH score of 6. Stroke alert was called and she was given TNK on 10/28/2024. She is admitted to ICU status post treatment for acute stroke management.
Acute CVA s/p TNK 10/28/24
Hypertension, 162/85 (peak)
Dysarthria
Right facial droop
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
Mild Intermittent Reactive Airway Disease
Hyperlipidemia
Post-Surgical Hypothyroidism
Anxiety/Insomnia
Follicular Lymphoma s/p Immunotherapy
Melanoma
Thyroidectomy
Laryngeal Tumor Resection
Appendectomy
Oophorectomy
Section
Tonsillectomy
Plan
S/p TNK for CVA 10/28/24
Observe overnight following administration, careful watch for signs of bleeding
Follow CBC, neurovascular checks
Brain MRI 10/29/24-- 1 cm subacute nonhemorrhagic infarct in the left centrum semiovale
Prior cardiac history includes HTN
Unclear if this was the cause, peak systolic BP 160s
Cardiac eval in place
ECHO reviewed/stable
Prior h/o lung disease: history of possible RAD, maintained on inhalers-Arnuity
Resumed
CXR clear, no acute process
Can obtain OP FU if needed
Insomnia noted, would check PSG due to CVA history
Aspiration precautions
CXR reviewed
Restart diet per protocol
GI ppx
Speech eval
PT/OT
Creat at baseline, follow UO
No signs/symptoms suspicious for infectious etiology at this time.
Will observe off antibiotics for now.
DVT ppx held, SCDs
If doing well, can transfer to floors
We will leave her contact in chart for sleep evaluation as outpatient
Diagnostic Data
Chest X-Ray: 10/28/24- No active cardiopulmonary disease.
Brain MRI 10/29/24- There is 1 cm subacute nonhemorrhagic infarct in the left centrum semiovale.
CT Scan:
HCT 10/28/24- 1. No CT evidence for acute intracranial hemorrhage or transcortical infarct.
2. Mild bilateral frontal and parietal lobe volume loss.
H&N - 1. No CTA evidence for internal carotid artery stenosis or occlusion. 2. 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 3. 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 4. Moderate discogenic
degenerative disease at C5/C6 with a disc-osteophyte complex causing mild spinal cord compression, mild central canal stenosis, and severe left neural foraminal narrowing.
1. 50-70% diameter stenosis in the clinoid segment of the left ICA. 2. 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 3. Moderate hypoplasia of the basilar artery.
4. 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 5. Less than 50% diameter stenosis in the left vertebral artery.
Echo: 10/29/24- Normal left ventricular size, wall thickness and systolic function. No regional wall motion abnormalities are seen. LV ejection fraction is 60-65% by Cobb's method of discs. Normal diastolic function. No interatrial communication
noted on saline/bubble study x 2 including Valsalva. There is no cardiac embolic source seen. If clinical suspicion is high would suggest RENITA.
PFT's:
Reports and relevant images were personally reviewed.
-----
Critical care time 35 mins -- this includes review of history, physical exam, medications, hemodynamic/ventilator parameters, laboratory data, imaging and discussion with house staff, pharmacy, respiratory therapy, electronics inspector, and nursing.
Subjective Dataa
Subjective Data
Date of Service:
Date of Service: October 30, 2024
Chief Complaint: Data Migration Lead Follow Up
Subjective:
Doing well, no new complaints
Still having ongoing dizziness/HAs
Otherwise stable, off pressors, on room air
Objective Data
Data Reviewed
Vital Signs / I&O / Oxygen:
Vital Signs
Temp Pulse Resp BP Pulse Ox
97.3 F 48 12 136/66 96
10/30/24 03:30 10/30/24 04:00 10/30/24 04:00 10/30/24 04:00 10/30/24 04:00
Intake and Output
10/29/24 10/30/24 10/31/24
06:59 06:59 06:59
Intake Total 160 / 240 18390
Output Total 500 / 500
Balance -340 / -260 18390
SaO2 96
Physical Exam
General: Comfortable and Other (NAD)
HEENT: Normocephalic, Anicteric, Moist Mucous Membranes and Other (facial droop)
Cardiovascular: S1-S2 and Regular Rhythm
Respiratory: Clear and Non-Labored Respirations
GI: Soft, Non Distended and Non Tender
Neurology: Awake, Alert and Oriented
Skin: Warm, Dry and Good Color
Labs/Micro/Reports
Lab Data
10/30/24 04:19
10/30/24 04:19
[2024-10-30] MEDS: NSS 1000 IV (07:19)
[2024-10-30 08:17] LABS: Glucose - Point of Care 96 mg/dl (70-99)
[2024-10-30] MEDS: WELLBUTRIN XL (24 hour extended release) 300 MG PO (09:16)
[2024-10-30] MEDS: PLAVIX 75 MG PO (09:17)
[2024-10-30] MEDS: ASPIR LOW (ENTERIC COATED) 81 MG PO (09:17)
--- NOTE | 2024-10-30 10:17 | PTCARENOTE ---
Dr. Agrawal notified that pt would like her Wellbutrin tapered. That will be done as outpatient per MD. Will adress other needs with ICU medical staff.
--- NOTE | 2024-10-30 11:30 | PTCARENOTE ---
Assisted pt to the commode then bedside chair. She tolerated it well. Right upper extremity was just hanging at her side when standing. She is very motivated with her rehab and verbalized 'I want to bren again, I want to do the things I was doing
before this'. Supportive care given. I stressed the importance of her reading the stroke booklet due to her short limited time in the hospital. She stated she would read it. Dr. Newman notified that her son was hoping for an update from her
regarding the MRI results and the plan of care moving forward.
--- NOTE | 2024-10-30 11:33 | W.PN.NEURO.1 ---
Today's Communication / Plan
-
.
Subjective/Objective
Subjective Data
Date of Service: October 30, 2024
Neurology Follow Up Note.
24-hour events: Sinus bradycardia down to 47, intermittently hypertensive up to 164/124 last evening.
Ms. Burns continues to have right hemiparesis and tingling of the fingertips of the right hand.
Brain MRI wo tawana-subacute left centrum semiovale involving the upper portions of the lentiform nucleus and thalamus as well as the tail of the caudate on the left infarct.
Labs: LDL 110, HbA1C 5.6
CTA head/neck-50-70% stenosis in the clinoid segment of the left ICA.
TTE-no PFO, intracardiac mass or thrombus.
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
PSH: 4 , bilateral cataract surgery, thyroidectomy right cheek melanoma resection, L oophorectomy, Laryngeal Tumor resection
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
FH: Mother�lung cancer, father, son-hand tremor
All: Aspirin�GI intolerance
ROS:Constitutional: Positive for 20 pound weight loss
HENT: Negative for ear pain, hearing loss, tinnitus and trouble swallowing.
Eyes: Negative. Negative for photophobia, pain and visual disturbance.
Respiratory: Negative for cough, choking and shortness of breath.
Cardiovascular: Negative for chest pain, palpitations and leg swelling.
Gastrointestinal: Positive for dysphagia
Endocrine: Negative. Negative for cold intolerance.
Genitourinary: Negative for dysuria, flank pain and urgency.
Musculoskeletal: Negative for back pain, gait problem, neck pain and neck stiffness.
Skin: Negative for rash.
Allergic/Immunologic: Negative. Negative for immunocompromised state.
Neurological: Positive for right-sided weakness right hand paresthesias
Psychiatric/Behavioral: Positive for insomnia, anxiety
General: Well developed. In no acute distress.
Cardio: Regular rate and rhythm without murmur. Extremities are without cyanosis or edema.
Neuro:
Mental Status: Alert, oriented to person, place, and date. Increased processing time. Intermittent expressive aphasia. Anxious mood. Good fund of knowledge. Follows complex requests across the midline. Comprehension, naming, and repetition
intact.
Cranial Nerves: Pupils are equally round, surgical. EOMs full. Visual uribe full to confrontation. No ptosis. No nystagmus. V1-V3 intact to light touch and pinprick bilaterally, symmetric. Face symmetric. Normal hearing AU. The palate
elevated well. SCMs and traps 5/5. Tongue midline. Mild dysarthria.
Motor: R PD. Drifts right leg to bed plane in<5 secs.
Reflexes: neg grasp BL
Sensory: Normal LT
Coordination: No dysmetria, action BL hand tremor
Gait: deferred
Assessment and Plan:
I. Acute L left centrum semiovale/lentiform nucleus/thalamic/tail of the caudate stroke. Likely etiology�small vessel disease versus embolic(cardioembolic/artery to artery embolization)
II. 50-70% stenosis in the clinoid segment of the left ICA.
III. History of mesenteric follicular lymphoma, melanoma
IV. Bifrontal atrophy.
-Continue Telemetry monitoring.
-Strict blood pressure control
-Continue Plavix 75 mg QD lifelong. The patient is reportedly intolerant to aspirin
-Lipitor 40 mg QHS.
-OP Holter monitoring
-PT.
-DVT prophylaxis.
-OP neuropsychological evaluation
-OP neurology follow-up.
I personally reviewed all radiology and labs along with past medical records pertinent to current medical problems. Total time spent in patient care is 35 minutes.
Thank you for allowing us to participate in the care of this patient. Please do not hesitate to contact us with any questions or concerns.
Objective Data
Vital Signs
Temp Pulse Resp BP Pulse Ox
36.5 C 48 12 136/66 97
10/30/24 07:05 10/30/24 04:00 10/30/24 04:00 10/30/24 04:00 10/30/24 07:05
Lab Results
10/30/24 04:19
10/30/24 04:19
PT 13.6 Sec (11.4-14.6) 10/29/24 03:02
INR 1.01 10/29/24 03:02
APTT 28.9 Sec (23.4-35.0) 10/29/24 03:02
Sodium 140 mmol/L (135-145) 10/30/24 04:19
Potassium 4.0 mmol/L (3.5-5.1) 10/30/24 04:19
BUN 12 mg/dl (7-17) 10/30/24 04:19
Glucose 94 mg/dl (70-99) 10/30/24 04:19
Calcium 7.8 mg/dl (8.4-10.2) L 10/30/24 04:19
LDL Cholesterol, Calc 110 mg/dl 10/29/24 03:02
Patient Allergies
No Known Allergies Allergy (Verified 10/28/24 15:42)
Vital Signs and Labs
-
Vital Signs and Labs:
Vital Signs
Temp Pulse Resp BP Pulse Ox
36.5 C 48 12 136/66 97
10/30/24 07:05 10/30/24 04:00 10/30/24 04:00 10/30/24 04:00 10/30/24 07:05
Lab Results
10/30/24 04:19
10/30/24 04:19
PT 13.6 Sec (11.4-14.6) 10/29/24 03:02
INR 1.01 10/29/24 03:02
APTT 28.9 Sec (23.4-35.0) 10/29/24 03:02
Sodium 140 mmol/L (135-145) 10/30/24 04:19
Potassium 4.0 mmol/L (3.5-5.1) 10/30/24 04:19
BUN 12 mg/dl (7-17) 10/30/24 04:19
Glucose 94 mg/dl (70-99) 10/30/24 04:19
Calcium 7.8 mg/dl (8.4-10.2) L 10/30/24 04:19
LDL Cholesterol, Calc 110 mg/dl 10/29/24 03:02
Medications
-
Medications:
Generic Name Dose Route Start Last Admin
Trade Name Freq PRN Reason Stop Dose Admin
Acetaminophen 650 mg 10/28/24 18:17 10/30/24 00:03
Acetaminophen 325 Mg Tablet PO 11/25/24 18:16 650 mg
Q4HPRN PRN Administration
BRANDT, mild pain, or temp >100.4F
Acetaminophen 650 mg 10/28/24 21:38 10/29/24 05:50
Acetaminophen 650 Mg Rectal Suppository RECTAL 11/25/24 21:37 650 mg
Q4HPRN PRN Administration
fever>100.3/mild pain
Atorvastatin Calcium 40 mg 10/28/24 18:00 10/29/24 18:14
Atorvastatin (Lipitor) 40 Mg Tablet PO 11/25/24 17:59 40 mg
QPM PATRICA Administration
Bupropion HCl 300 mg 10/29/24 08:00 10/30/24 09:16
Bupropion (24hr) Extended Release 300 Mg Tablet PO 11/26/24 07:59 300 mg
DAILY PATRICA Administration
Clopidogrel Bisulfate 75 mg 10/29/24 08:00 10/30/24 09:17
Clopidogrel 75 Mg Tablet PO 11/18/24 08:01 75 mg
DAILY PATRICA Administration
Dextrose 12.5 grams 10/28/24 18:17
Dextrose 50% (0.5 Grams/Ml) 50 Ml Syringe IV 11/25/24 18:16
[id number] PRN
hypoglycemia
Protocol
Glucagon 1 mg 10/28/24 18:17
Glucagon 1 Mg Vial IM 11/25/24 18:16
PRN PRN
hypoglycemia
Protocol
Labetalol HCl 10 mg 10/28/24 18:17
Labetalol Hcl 5 Mg/1 Ml (20 Mg/4 Ml) Injection IV 11/25/24 18:16
Q6HPRN PRN
BP > 180/105 mmHg
Levothyroxine Sodium 25 mcg 10/29/24 06:00 10/30/24 06:42
Levothyroxine 25 Mcg Tablet PO 11/26/24 05:59 25 mcg
DAILY@0600 PATRICA Administration
Lorazepam 1 mg 10/28/24 22:00 10/29/24 20:21
Lorazepam 1 Mg Tablet PO 11/25/24 21:59 1 mg
HS PATRICA Administration
Ondansetron HCl 4 mg 10/29/24 20:15 10/29/24 20:20
Ondansetron 4 Mg/2 Ml Vial IV 11/26/24 20:14 4 mg
Q6HPRN PRN Administration
NAUSEA/VOMITING
Patch Removal 1 patch 10/31/24 00:00
Remove Lidocaine Patch REMOVE 10/31/24 00:01
ONCE ONE
Polyethylene Glycol 17 grams 10/30/24 10:19
Polyethylene Glycol Powder 17 Grams Packet PO 11/27/24 10:18
DAILYPRN PRN
constipation
Sodium Chloride 0 flush 10/28/24 19:00
Sodium Chloride 0.9% (Flush) Syringe IV 11/25/24 18:59
PER PROTOCOL PATRICA
Trazodone HCl 100 mg 10/28/24 22:00 10/29/24 20:21
Trazodone 100 Mg Tablet PO 11/25/24 21:59 100 mg
HS PATRICA Administration
Home Medications
-
Home Medications
atorvastatin 10 mg tablet 10 mg PO DAILY High Cholesterol 04/25/21
levothyroxine 25 mcg tablet 25 mcg PO UD Thyroid 04/25/21
lorazepam 1 mg tablet 1 mg PO HS Mental Health/Anxiety 04/25/21
trazodone 100 mg tablet 100 mg PO HS Mental Health/Anxiety 04/25/21
bupropion HCl 300 mg 24 hr tablet, extended release (Wellbutrin XL) 300 mg PO DAILY Mental Health/Anxiety 10/28/24
esomeprazole magnesium 40 mg capsule,delayed release (Nexium) 40 mg PO DAILYPRN PRN gerd 10/28/24
fluticasone furoate 100 mcg/actuation blister powder for inhalation (Arnuity Ellipta) 1 inh inhalation R DAILYPRN PRN sob 10/28/24
--- NOTE | 2024-10-30 12:00 | W.PN.UPDATE ---
Update Note
Progress Note Update
Spoke to Mr. Leonard, patient's son. Reviewed recent brain MRI results as well as stroke etiology, workup prevention and prognosis. All questions were answered.
--- NOTE | 2024-10-30 12:42 | W.PN.HOSP.TC ---
Today's Communication/Plan
-
med/surge
PT/OT and d/c planning
Assessment / Plan
Assessment / Plan
69yo F with PMHx lymphoma of the mesentery, GERD, anxiety, HLD, hypothyroidism came with acute onset of dysarthria and RUE weekness, s/p tPa in ED, symptoms slowly resolving, 50-70% diameter stenosis in the clinoid segment of the left ICA, managed
for CVA
A/P:
#CVA
telemetry without clinically significant arrhythmia
Echo EF 60-65%, no embolic source, no PFA
permissive HTN, then improve control
MRI: 1 cm subacute nonhemorrhagic infarct in the left centrum semiovale
Neurology follow up
ASA, Plavix, statin
LDL 110
HgbA1c 5.6%
TSH 2.41
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
PT/OT
CTA with vasculopathy
#50-70% diameter stenosis in the clinoid segment of the left ICA
ASA, statin
MRA neck without significant ICA stenosis
#Essential HTN
patient reported poor BP control prior to admission
adjust meds before d/c
#Hypothyroidism
cont Synthroid
#DJD
disc-osteophyte complex causing mild spinal cord compression, mild central canal stenosis, and severe left neural foraminal narrowing
DVT ppx SCDs
Full code
I have spent at least 39min reviewing chart, test results, communication with consultants and direct patient care
Anticipated Discharge: Within 24 hours
Subjective/Interval History
-
Date of Service: October 30, 2024
Objective Data
-
Labs:
Laboratory Results
10/30/24
04:19
WBC 5.3
Hgb 12.0
Hct 35.5 L
Plt Count 165
Sodium 140
Potassium 4.0
Chloride 109 H
Carbon Dioxide 27
BUN 12
Creatinine 0.7
Glucose 94
Calcium 7.8 L
Vital Signs:
Vital Signs
Temp Pulse Resp BP Pulse Ox
97.9 F 57 20 155/104 96
10/30/24 11:55 10/30/24 12:00 10/30/24 11:02 10/30/24 12:00 10/30/24 10:00
I&O
10/29/24 10/30/24 10/31/24
06:59 06:59 06:59
Intake Total 160 / 240 1839 880 / 880
Output Total 500 / 500 375 / 375
Balance -340 / -260 1839 505 / 505
--- NOTE | 2024-10-30 13:19 | CM ---
CM following re: discharge planning.
Discussed in Rounds, reviewed pt's chart, met with pt and pt's son at bedside.
Physiatry, Pt, OT and ST evaluations noted - acute level of rehab recommended. Both pt and her son requested [facility].
A referral to [facility] made.
D/C plan: [facility].
CM will follow to assist pt with discharge to [facility].
--- NOTE | 2024-10-30 14:24 | PTCARENOTE ---
Remains OOB to the chair with family at the bedside. Dr. Newman aware of elevated BP, Deferred to Dr. Bruner for BP management.
--- NOTE | 2024-10-30 15:51 | PTCARENOTE ---
pts son aware of transfer to room 412-1.
[2024-10-30] MEDS: PROCARDIA XL (EXTENDED RELEASE) 30 MG PO (16:04)
--- NOTE | 2024-10-30 16:13 | PTCARENOTE ---
Remains in the chair. Family at the bedside. Procardia administered as ordered. I will reassess BP prior to transfer to the floor.
--- NOTE | 2024-10-30 16:19 | PTOTSP ---
DRILLING SUPERVISOR Evaluation
Patient presents with signs concerning for at least mild expressive aphasia and at least mild-moderate dysarthria. Therapy warranted at the acute care level and after D/C. Patient is appropriate for inpatient rehabilitation.
[2024-10-30] MEDS: LIPITOR 40 MG PO (16:59)
--- NOTE | 2024-10-30 18:06 | TRANSFER ---
Arrived to floor from ICU in wheelchair. NIH of 7 see flow sheet. Oriented to room. Call valladares within reach.
[2024-10-30] MEDS: ATIVAN 1 MG PO (21:02)
[2024-10-30] MEDS: DESYREL 100 MG PO (21:02)
--- NOTE | 2024-10-30 22:15 | PTCARENOTE ---
pt complaining of severe headache, dizziness, and lightheadedness at 2100. 650mg PO tylenol administered for pt's pain. no acute neuro changes upon assessment, VSS- see chart. at 2200, pt still complaining of headache. DRY MOLDER made aware, VSS and no
acute neuro changes. no new orders at this time- will continue to monitor.
[2024-10-31 03:07] VITALS: BP 114/69
[2024-10-31] MEDS: SYNTHROID 25 MCG PO (05:26)
[2024-10-31] MEDS: PROCARDIA XL (EXTENDED RELEASE) 30 MG PO (08:02)
[2024-10-31] MEDS: PLAVIX 75 MG PO (08:02)
[2024-10-31] MEDS: WELLBUTRIN XL (24 hour extended release) 300 MG PO (08:02)
[2024-10-31 08:23] VITALS: BP 123/73
[2024-10-31 10:56] VITALS: BP 145/84; BP 159/83; PULSE 72; PULSE 82
--- NOTE | 2024-10-31 11:14 | W.PN.HOSP.TC ---
Today's Communication/Plan
-
dc
Assessment / Plan
Assessment / Plan
69yo F with PMHx lymphoma of the mesentery, GERD, anxiety, HLD, hypothyroidism came with acute onset of dysarthria and RUE weakness, s/p tPa in ED, symptoms slowly resolving, 50-70% diameter stenosis in the clinoid segment of the left ICA, managed
for CVA, found 1 cm subacute nonhemorrhagic infarct in the left centrum semiovale. Neurology recommended outpatient Holter and indefinitely Plavix due to ASA intolerance by the patient. Medically stable for acute rehab as per PT/OT assessment
A/P:
#CVA
telemetry without clinically significant arrhythmia
Echo EF 60-65%, no embolic source, no PFA
permissive HTN, then improve control
MRI: 1 cm subacute nonhemorrhagic infarct in the left centrum semiovale
Neurology follow up
ASA, Plavix, statin
LDL 110
HgbA1c 5.6%
TSH 2.41
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
PT/OT
CTA with vasculopathy
#50-70% diameter stenosis in the clinoid segment of the left ICA
ASA, statin
MRA neck without significant ICA stenosis
#Essential HTN
patient reported poor BP control prior to admission
adjust meds before d/c
#Hypothyroidism
cont Synthroid
#DJD
disc-osteophyte complex causing mild spinal cord compression, mild central canal stenosis, and severe left neural foraminal narrowing
DVT ppx SCDs
Full code
I have spent at least 39min reviewing chart, test results, communication with consultants and direct patient care
Anticipated Discharge: Today
Subjective/Interval History
-
Date of Service: October 31, 2024
Objective Data
-
Vital Signs:
Vital Signs
Temp Pulse Resp BP Pulse Ox
98.7 F 75 18 123/73 97
10/31/24 08:23 10/31/24 08:23 10/31/24 08:23 10/31/24 08:23 10/31/24 08:23
I&O
10/30/24 10/31/24 11/01/24
06:59 06:59 06:59
Intake Total 1839 1360 / 1360
Output Total 650 / 650
Balance 1839 710 / 710
Review of Systems
-
History Source: Patient
All other systems: Reviewed and negative
Physical Exam
-
General: No Apparent Distress
HEENT: Normocephalic
Cardiac: Regular Rhythm
GI: Soft
Neuro: Awake, Alert, Oriented, AO x 3 and Slurred Speech
Psych: Calm
--- NOTE | 2024-10-31 11:17 | W.DCSUMMARY ---
Discharge Summary
Discharge Data
Date of Admission: 10/28/24
Date of Discharge: 10/31/24
-
Pending Results: No
Hospital Course
69yo F with PMHx lymphoma of the mesentery, GERD, anxiety, HLD, hypothyroidism came with acute onset of dysarthria and RUE weakness, s/p tPa in ED, symptoms slowly resolving, 50-70% diameter stenosis in the clinoid segment of the left ICA, managed
for CVA, found 1 cm subacute nonhemorrhagic infarct in the left centrum semiovale. Neurology recommended outpatient Holter (referral to cardio provided, patient will have to call to schedule - she verbalized understanding of the instructions) and
indefinitely Plavix due to ASA intolerance by the patient. Medically stable for acute rehab as per PT/OT assessment
I have spent at least 39min reviewing chart, test results, communication with consultants and direct patient care
Patient was managed for:
#CVA
#50-70% diameter stenosis in the clinoid segment of the left ICA
#Essential HTN
#Hypothyroidism
#DJD
Discharge Plan
-
Patient Disposition: Acute Rehab Facility
Discharge Diagnosis/Procedures: CVA
Diet: Low Sodium
Driving Restrictions: As prior to admission
Other Services: PT
Referrals:
Lesley Mancia DO [Active] - in six weeks (sleep referral, 6 weeks)
Nam Blanchard MD [Active] - in three to four weeks (for Holter monitor)
Michelle Newman MD [Active] - in two to four weeks
UNKNOWN - PT NOT,INTERVIEWE [Family Provider] -
Prescriptions:
New
atorvastatin 40 mg Tablet
40 mg PO QPM Qty: 30 0RF
nifedipine 30 mg Tablet Extended Release
30 mg PO DAILY Qty: 30 0RF
clopidogrel 75 mg Tablet
75 mg PO DAILY Qty: 30 0RF
famotidine 20 mg tablet
20 mg PO BID Qty: 60 0RF
Continued
atorvastatin 10 MG tablet
10 mg PO DAILY
levothyroxine 25 MCG tablet
25 mcg PO UD
Rx Instructions:
TAKE 9 PILLS PER A WEEK, take 2 on tuesday and 1 the rest of the days, but every other tuesday take 2 tablets
trazodone 100 MG tablet
100 mg PO HS
lorazepam 1 MG tablet
1 mg PO HS
bupropion HCl [Wellbutrin XL] 300 mg Tablet Extended Release 24 Hr
300 mg PO DAILY
Arnuity Ellipta 100 mcg/actuation Blister With Device
1 inh INHALATION R DAILYPRN PRN (Reason: sob)
metoprolol succinate 25 mg Tablet Extended Release 24 Hr
25 mg PO DAILY
Discontinued
esomeprazole magnesium [Nexium] 40 mg Capsule,Delayed Release(Dr/Ec)
40 mg PO DAILYPRN PRN (Reason: gerd)
Discharge Date and Time
Print Language: CZECH
[2024-10-31 11:54] VITALS: BP 123/70
--- NOTE | 2024-10-31 12:05 | CM ---
Pt medically stable to d/c to [facility] today
Per [facility]/Mauricio, pt can be accepted today. Pt does not require auth
CM informed hospitalist Mauricio can accept today. Dr. Bruner agreeable to d/c today
Pt seen bedside w/ family informing of transfer to [facility] today, all agreeable
IMM reviewed, pt given copy, copy on chart
Plan: Transfer to [facility]
[2024-10-31 15:58] VITALS: BP 118/77
== END 2024-10-31 16:48 | DRG 62 ==
LOC: 4 EAST ACU 18:16
PROVIDERS: Physician Assistant Medical; ADMITTING PHYSICIAN Internal Medicine; ATTENDING PHYSICIAN Internal Medicine; CONSULT PHYSICIAN Physical Medicine & Rehabilitation; CONSULT PHYSICIAN Psychiatry & Neurology Clinical Neurophysiology; EMERGENCY PHYSICIAN Emergency Medicine; OTHER PHYSICIAN Internal Medicine
PROC: 3E03317 Introduction of Other Thrombolytic into Peripheral Vein, Percutaneous Approach (ICD-10-PCS; 2024-10-28)
DX: I63.89 Other cerebral infarction (principal); G81.91 Hemiplegia, unspecified affecting right dominant side; M47.12 Other spondylosis with myelopathy, cervical region; E78.00 Pure hypercholesterolemia, unspecified; E89.0 Postprocedural hypothyroidism; F41.9 Anxiety disorder, unspecified; G47.00 Insomnia, unspecified; J45.20 Mild intermittent asthma, uncomplicated; R29.810 Facial weakness; R47.01 Aphasia; R29.706 NIHSS score 6; I65.02 Occlusion and stenosis of left vertebral artery; I65.22 Occlusion and stenosis of left carotid artery; K21.9 Gastro-esophageal reflux disease without esophagitis; I25.10 Atherosclerotic heart disease of native coronary artery without angina pectoris; I10 Essential (primary) hypertension; Z85.72 Personal history of non-Hodgkin lymphomas; Z79.899 Other long term (current) drug therapy; Z79.890 Hormone replacement therapy
CPT/HCPCS: 0042T; 70450; 70496; 70498; 70548; 70551; 71045; 74230; 80048; 80053; 80061; 82962; 83036; 84443; 85025; 85027; 85610; 85730; 92507; 92523; 92526; 92610; 92611; 93005; 93306; 96374; 97116; 97163; 97167; 97530; 97535; 99291; A9585; J3101; Q9967

== ENCOUNTER 2024-11-23 08:54 | Outpatient (RCR) | payer MEDICARE, BC, SELFPAY | END 2024-11-23 23:59 | disposition home or self-care (01) | LOC: RST 08:54 | PROVIDERS: ATTENDING PHYSICIAN Physical Medicine & Rehabilitation | DX: I69.351 Hemiplegia and hemiparesis following cerebral infarction affecting right dominant side (principal); I69.322 Dysarthria following cerebral infarction; I69.393 Ataxia following cerebral infarction; I69.328 Other speech and language deficits following cerebral infarction; R26.89 Other abnormalities of gait and mobility; Z73.6 Limitation of activities due to disability | CPT/HCPCS: 92507; 92523; 97110; 97112; 97116; 97162; 97530 ==

== ENCOUNTER 2024-12-20 06:21 | Outpatient (RCR) | payer MEDICARE, BC, SELFPAY | END 2024-12-20 23:59 | disposition home or self-care (01) | LOC: ROT 06:21 | PROVIDERS: ATTENDING PHYSICIAN Physical Medicine & Rehabilitation | DX: I69.351 Hemiplegia and hemiparesis following cerebral infarction affecting right dominant side (principal); I69.322 Dysarthria following cerebral infarction; I69.393 Ataxia following cerebral infarction; I69.328 Other speech and language deficits following cerebral infarction; R26.89 Other abnormalities of gait and mobility; Z73.6 Limitation of activities due to disability; I69.318 Other symptoms and signs involving cognitive functions following cerebral infarction; I63.9 Cerebral infarction, unspecified; R13.12 Dysphagia, oropharyngeal phase | CPT/HCPCS: 92507; 92526; 92610; 96125; 97110; 97112; 97116; 97129; 97130; 97167; 97530; 97535; 97550 ==

== ENCOUNTER 2025-01-05 22:47 | Emergency (ER) | payer MEDICARE, BC, SELFPAY ==
[2025-01-05 22:50] VITALS: BP 156/86
[2025-01-06 00:48] VITALS: BMI 23.1
[2025-01-06 00:51] VITALS: BP 159/70
--- NOTE | 2025-01-06 01:17 | ED.GENMED ---
History of Present Illness
General
Chief Complaint: Blood Pressure Problem
Source: patient and previous hospital records (Previous hospitalization October 2024 for treatment of acute ischemic CVA.)
Exam Limitations: none
Time Seen by Provider: 01/06/25 00:51
Nursing documentation reviewed up to this point in time: agreed with
History of Present Illness
History of Present Illness:
This is a 69-year-old woman who has history of lymphoma of the mesentery, GERD, anxiety, hyperlipidemia, hypertension, hypothyroidism who suffered an acute ischemic left sided CVA October 28 of this year with residual mild dysarthria and right upper
extremity weakness. She continues with outpatient physical therapy, Occupational Therapy with slow improvement. She does admit to frequent right frontal headaches that began after suffering her stroke.
As per recommendations she monitors her blood pressure 3 times per day and record results. She states her blood pressure is generally very well-controlled, she is maintained on metoprolol 12.5 mg daily. She notes previously had been maintained on
25 mg daily prior to her stroke.
This evening she was concerned when her blood pressure was elevated 160/90 and remains elevated throughout the evening along with right frontal headache. She denies increasing weakness, denies worsening dysarthria. She denies nasal congestion nor
sore throat, no fever no chills, no vision difficulty, no dizziness nor lightheadedness, no nausea nor vomiting.
She has not taken anything for her headache.
Past History
Past History
ED Past Medical History: Asthma, Cancer (Lymphoma of mesentery), CVA, GERD, HTN, Hypercholesterolemia, Hypothyroidism, Psychiatric (Anxiety) and Other (Previous bile duct stricture, partial thyroidectomy, oopherectomy, hypertension)
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
Social History
Tobacco: Non-smoker
Alcohol: None
Personal:
Living: with family
Employment: Retired
Family History
Family History: Other (Father had a brain aneurysm)
Phy Exam
Physical Exam
Physical Exam:
GENERAL: 69-year-old woman appears her stated age, awake and alert, pleasant, appears in no acute distress.
EYE: pupils equal and reactive. anicteric
NECK: Supple, nontender, no meningismus, no significant adenopathy.
ENT: posterior pharynx is clear, oral mucosa is moist. TM clear b/l, nares patent. Very minimal right lower facial droop. Rare brief word searching noted. Speech is overall clear.
CARDIAC: Regular rate and rhythm. no murmur.
LUNGS: Clear breath sounds bilaterally, no acute respiratory distress, no wheezes/rales/rhonchi
ABDOMEN: Soft, nondistended, without focal tenderness, normoactive BS.
NEUROLOGICAL: Alert and oriented x3, minimal weakness of right upper extremity. Minimal right lower facial droop is noted.
SKIN: Warm and dry, normal color, skin intact. No rash.
MUSCULOSKELETAL: No C/C/E. peripheral pulses are full and equal b/l. No palpable tenderness.
PSYCH: Normal and appropriate interaction.
Course
Orders/Labs/Results
Orders:
Orders
01/05/25 22:56
ECG [Electrocardiogram (*1)] Urgent
Reason for Study: Hypertension, Benign
Complete Blood Count/With Diff Urgent
Comprehensive Metabolic Panel Urgent
01/05/25 22:57
EKG- Treatment ONCE
01/06/25 01:16
CT Head W/o Iv Contrast Urgent
Comment:
Reason For Exam: right frontal headache, HTN
Acetaminophen 1000MG/100Ml [Ofirmev] 1,000 mg in 100 ml IV ONCE
Acetaminophen IV Indication:: ED Narcotic Naive Pt-ONCE
Abnormal Lab Results
01/06/25
01:03
Absolute Monos (auto) 0.8 H 10^3/uL
(0.1-0.6)
Lymphocytes % 18.0 L %
(20.5-51.1)
Monocytes % 11.1 H %
(1.7-9.3)
Glucose 103 H mg/dl
(70-99)
01/06/25 01:03
01/06/25 01:03
Vital Signs
Initial and Last Documented VS:
Initial Vital Signs
Temp Pulse Resp BP Pulse Ox
98.1 F 74 22 156/86 98
01/05/25 22:50 01/05/25 22:50 01/05/25 22:50 01/05/25 22:50 01/05/25 22:50
Last Documented Vital Signs
Temp Pulse Resp BP Pulse Ox
98.1 F 70 18 159/70 96
01/05/25 22:50 01/06/25 01:00 01/06/25 01:00 01/06/25 00:51 01/06/25 01:00
MDM/Problems Addressed
Differential Diagnosis Includes:
Concern for migraine headache/post CVA headache, tension headache, other consideration is intracranial bleeding.
Reassuring that neurologic deficits are stable, slowly improving.
Will check CT of the head and will give an IV dose of Tylenol for headache.
Mildly elevated blood pressure and previous records reveal sporadic similar elevations throughout hospital stay as well as [facility] stay.
Chronic conditions affecting care: HTN and Neurological disorder
*Radiology
Radiology exam reviewed: radiology read reviewed
*Pulse Oximetry
Patient hypoxic: no
*EKG
Interpreted by ED Provider?: Yes
Interpretation: normal
Comparison EKG: no changes (Unchanged from previous October 2024)
Rate: normal
Rhythm: sinus
[place]: normal axis
Interval: normal interval
QRS Pattern: normal QRS
Ischemia: no ischemia
*Design Transferrer Interpretation
Rate: normal
Interpretation: normal
Rhythm: sinus
*Critical Care Note
Total Time (30-74mins, 75-104mins- exclusive of procedures): Not Applicable
Update Note
Update Note:
04:30
Patient resting comfortably.
Moderate improvement in headache but not completely resolved. She does admit to frequent, near daily right frontal headaches.
CT of the head shows old left basal ganglia infarct.
Blood pressure improved to 140/80.
Will discharge to home with recommendation for follow-up with PCP as well as her neurologist.
Okay to continue Tylenol as needed for headache.
Prompt return precautions provided.
ED Attending Note
-
Portions of this chart may have been created with voice recognition software.� Occasional wrong word or��sound alike� substitutions may have occurred due to the inherent limitations of voice recognition software.
Discharge Plan
Departure
Patient Disposition: Home (Routine Discharge)
Date of Disposition: 01/06/25
Time of Disposition: 04:30
Patient with high blood pressure during this ER visit?: No
Condition: Good
Discharge Problem:
Headache, Hypertension
Instructions: High Blood Pressure (DC), Headaches in adults
Prescriptions:
No Action
trazodone 100 MG tablet
100 mg PO HS
lorazepam 1 MG tablet
1 mg PO HS
bupropion HCl [Wellbutrin XL] 300 mg Tablet Extended Release 24 Hr
300 mg PO DAILY
Arnuity Ellipta 100 mcg/actuation Blister With Device
1 inh INHALATION R DAILYPRN PRN (Reason: sob)
lidocaine 4 % Adhesive Patch,Medicated
1 patch topical DAILY 30 Days Qty: 30 0RF
levothyroxine 25 mcg Tablet
25 mcg PO MoTuWeThFrSa@0600 30 Days Qty: 26 0RF
acetaminophen 325 mg Tablet
650 mg PO Q4HPRN PRN (Reason: mild pain, headache) 30 Days Qty: 100 0RF
levothyroxine 50 mcg Tablet
50 mcg PO WETZEL@0600 30 Days Qty: 5 0RF
atorvastatin 40 mg Tablet
40 mg PO QPM Qty: 30 0RF
famotidine 20 mg tablet
20 mg PO BID Qty: 60 0RF
clopidogrel 75 mg Tablet
75 mg PO DAILY Qty: 30 0RF
metoprolol succinate 25 mg Tablet Extended Release 24 Hr
12.5 mg PO DAILY 30 Days Qty: 15 0RF
Referrals:
Moy Garcia MD [Family Provider] - Call in 1-3 days for appt
Interventions
Interventions:
*Risk Screen - Suicide Last Done: 01/06/25 00:48
*General Assessment Last Done: 01/06/25 00:48
*Neglect/Abuse Screening Last Done: 01/06/25 00:48
*ED- Fall Risk Assessment Last Done: 01/06/25 00:48
*ED COVID-19 Vaccine History Last Done: 01/06/25 00:48
ED- Cardiac Assessment Last Done: 01/06/25 00:48
ED- Neurological Assessment Last Done: 01/06/25 00:48
ED- Pulmonary Assessment Last Done: 01/06/25 00:48
Discharge Date and Time
Print Language: UKRAINIAN
[2025-01-06 01:23] LABS: ALT (SGPT) 15 U/L (0-35); AST (SGOT) 18 U/L (14-36); Albumin 3.9 g/dl (3.5-5.0); Alkaline Phosphatase 81 U/L (38-126); Blood Urea Nitrogen 14 mg/dl (7-17); Calcium 9.7 mg/dl (8.4-10.2); Carbon Dioxide 28 mmol/L (22-30); Chloride 103 mmol/L (98-107); Estimated Creatinine Clearance 49 ml/min; Glucose 103 mg/dl (70-99); Potassium 3.9 mmol/L (3.5-5.1); Sodium 138 mmol/L (135-145); Total Bilirubin 0.4 mg/dl (0.2-1.3); Total Protein 6.4 g/dl (6.3-8.2); eGFR > 60.00
[2025-01-06 01:32] LABS: % Basophils 1.1 % (0-2); % Eosinophils 3.2 % (0-6); % Immature Granulocytes 0.4 % (0-0.5); % Monocytes 11.1 % (1.7-9.3); % Neutrophils 66.2 % (42.2-75.2); Absolute Basophils 0.1 10^3/uL (0-0.2); Absolute Eosinophils 0.2 10^3/uL (0-0.7); Absolute Lymphocytes 1.4 10^3/uL (1.2-3.4); Absolute Monocytes 0.8 10^3/uL (0.1-0.6); Hematocrit 38.6 % (37.0-47.0); Hemoglobin 13.3 g/dL (12.0-16.0); Mean Corp Hgb Conc. 34.5 g/dL (33.0-37.0); Mean Corpuscular Hgb 30.2 pg (27.0-31.0); Mean Corpuscular Volume 87.7 fL (81.0-99.0); Mean Platelet Volume 10.4 fL (7.4-10.4); Nucleated Red Blood Cells % 0 %; Platelet Count 187 10^3/uL (130-400); White Blood Cell Count 7.6 10^3/uL (4.8-10.8)
[2025-01-06] MEDS: OFIRMEV 100 IV (01:42)
[2025-01-06 02:00] VITALS: BP 144/65
[2025-01-06 03:00] VITALS: BP 136/75
[2025-01-06 04:05] VITALS: BP 141/80
[2025-01-06 07:18] VITALS: BP 139/64
== END 2025-01-06 07:32 | disposition home or self-care (01) ==
LOC: EMR 22:47
PROVIDERS: Emergency Medicine; EMERGENCY PHYSICIAN Emergency Medicine; FAMILY PHYSICIAN Family Medicine
DX: R51.9 Headache, unspecified (principal); I10 Essential (primary) hypertension; E78.00 Pure hypercholesterolemia, unspecified; K21.9 Gastro-esophageal reflux disease without esophagitis; E03.9 Hypothyroidism, unspecified; F41.9 Anxiety disorder, unspecified; J45.909 Unspecified asthma, uncomplicated; Z79.899 Other long term (current) drug therapy; Z85.72 Personal history of non-Hodgkin lymphomas; Z86.73 Personal history of transient ischemic attack (TIA), and cerebral infarction without residual deficits; Z90.49 Acquired absence of other specified parts of digestive tract; Z90.721 Acquired absence of ovaries, unilateral
CPT/HCPCS: 99284; 96374; 70450; 80053; 85025; 93005

== ENCOUNTER 2025-01-06 17:32 | Emergency (ER) | payer MEDICARE, BC, SELFPAY ==
[2025-01-06 17:44] VITALS: BP 149/92
--- NOTE | 2025-01-06 19:06 | ED.GENMED ---
History of Present Illness
General
Chief Complaint: Blood Pressure Problem
Source: patient
Exam Limitations: none
Time Seen by Provider: 01/06/25 18:53
Nursing documentation reviewed up to this point in time: agreed with
History of Present Illness
History of Present Illness:
6-year-old female past medical history of stroke hypertension hyperlipidemia, asthma presenting the emergency department today with concerns of elevated blood pressure at home. She was in the ER earlier today had a workup here which was normal and
reassuring. Blood pressure at home was in the 160s over 100 which concerned her which found to come to the ER. No current symptoms at this time.
Past History
Past History
ED Past Medical History: Asthma, Cancer (Lymphoma of mesentery), CVA, GERD, HTN, Hypercholesterolemia, Hypothyroidism, Psychiatric (Anxiety) and Other (Previous bile duct stricture, partial thyroidectomy, oopherectomy, hypertension)
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
Social History
Tobacco: Non-smoker
Alcohol: None
Personal:
Living: with family
Employment: Retired
Family History
Family History: Other (Father had a brain aneurysm)
Review of Systems
Review of Systems
Allergies reviewed?: Yes
All Other Systems: ROS reviewed and negative except as documented in HPI and ROS
Phy Exam
Physical Exam
Physical Exam:
GENERAL: Alert , in no apparent distress
EYE: pupils equal and reactive
NECK: Supple, no significant adenopathy.
ENT: o/p clr, mmm.
CARDIAC: Regular rate and rhythm .
LUNGS: Clear breath sounds bilaterally, no acute respiratory distress, no wheezes/rales/rhonchi
ABDOMEN: Soft, without focal tenderness, no r/g, no cvat
NEUROLOGICAL: Alert and oriented, no focal neuro deficits
SKIN: Warm and dry, skin intact.
MUSCULOSKELETAL: No edema, well perfused.
PSYCH: Normal and appropriate interaction.
Course
Orders/Labs/Results
Orders:
Orders
01/06/25 19:05
Metoprolol Xl [Toprol Xl] 12.5 mg PO NOW STA
Vital Signs
Initial and Last Documented VS:
Initial Vital Signs
Temp Pulse Resp BP Pulse Ox
98.0 F 73 16 149/92 97
01/06/25 17:44 01/06/25 17:44 01/06/25 17:44 01/06/25 17:44 01/06/25 17:44
Last Documented Vital Signs
Temp Pulse Resp BP Pulse Ox
98.0 F 73 16 149/92 97
01/06/25 17:44 01/06/25 17:44 01/06/25 17:44 01/06/25 17:44 01/06/25 17:44
MDM/Problems Addressed
MDM/Problems Addressed:
69-year-old female presenting to the emergency department today with concerns of elevated blood pressure. Here blood pressure in the 140s over 90s patient asymptomatic. She was advised to increase her metoprolol dose. She was previously taking 25
daily but was recently switched to 12.5. She was given additional dose while here and otherwise will follow-up closely as an outpatient with cardiology and neurology. Return precautions given.
*Critical Care Note
Total Time (30-74mins, 75-104mins- exclusive of procedures): Not Applicable
ED Attending Note
-
Portions of this chart may have been created with voice recognition software.� Occasional wrong word or��sound alike� substitutions may have occurred due to the inherent limitations of voice recognition software.
Discharge Plan
Departure
Patient Disposition: Home (Routine Discharge)
Date of Disposition: 01/06/25
Time of Disposition: 19:08
Patient with high blood pressure during this ER visit?: Yes
Condition: Good
Covid-19: Not Applicable
Discharge Problem:
Elevated blood pressure reading
Instructions: High Blood Pressure (DC)
Prescriptions:
New
metoprolol succinate 25 mg capsule,sprinkle,ER 24hr
25 mg PO DAILY 14 Days Qty: 14 0RF
No Action
trazodone 100 MG tablet
100 mg PO HS
lorazepam 1 MG tablet
1 mg PO HS
bupropion HCl [Wellbutrin XL] 300 mg Tablet Extended Release 24 Hr
300 mg PO DAILY
Arnuity Ellipta 100 mcg/actuation Blister With Device
1 inh INHALATION R DAILYPRN PRN (Reason: sob)
lidocaine 4 % Adhesive Patch,Medicated
1 patch topical DAILY 30 Days Qty: 30 0RF
levothyroxine 25 mcg Tablet
25 mcg PO MoTuWeThFrSa@0600 30 Days Qty: 26 0RF
acetaminophen 325 mg Tablet
650 mg PO Q4HPRN PRN (Reason: mild pain, headache) 30 Days Qty: 100 0RF
levothyroxine 50 mcg Tablet
50 mcg PO WETZEL@0600 30 Days Qty: 5 0RF
atorvastatin 40 mg Tablet
40 mg PO QPM Qty: 30 0RF
famotidine 20 mg tablet
20 mg PO BID Qty: 60 0RF
clopidogrel 75 mg Tablet
75 mg PO DAILY Qty: 30 0RF
metoprolol succinate 25 mg Tablet Extended Release 24 Hr
12.5 mg PO DAILY 30 Days Qty: 15 0RF
Activity Restrictions/Additional Instructions:
You came to the emergency department today with concerns of elevated blood pressure. Please take an increased dose of metoprolol. Please take 25 mg daily and follow-up closely as an outpatient. Return for any worsening, new or concerning symptoms.
Interventions
Interventions:
*Risk Screen - Suicide Last Done: 01/06/25 17:44
Discharge Date and Time
Print Language: ALB[place]IAN
[2025-01-06] MEDS: TOPROL XL 12.5 MG PO (19:32)
== END 2025-01-06 19:43 | disposition home or self-care (01) ==
LOC: EMR 17:32
PROVIDERS: EMERGENCY PHYSICIAN Emergency Medicine; FAMILY PHYSICIAN Family Medicine
DX: I10 Essential (primary) hypertension (principal); E78.00 Pure hypercholesterolemia, unspecified; F41.9 Anxiety disorder, unspecified; J45.909 Unspecified asthma, uncomplicated; K57.90 Diverticulosis of intestine, part unspecified, without perforation or abscess without bleeding; E03.9 Hypothyroidism, unspecified; M19.90 Unspecified osteoarthritis, unspecified site; Z85.820 Personal history of malignant melanoma of skin; Z85.72 Personal history of non-Hodgkin lymphomas; Z86.73 Personal history of transient ischemic attack (TIA), and cerebral infarction without residual deficits
CPT/HCPCS: 99283

== ENCOUNTER 2025-01-17 10:53 | Outpatient (RCR) | payer MEDICARE, BC, SELFPAY | END 2025-01-17 23:59 | disposition home or self-care (01) | LOC: ROT 10:53 | PROVIDERS: ATTENDING PHYSICIAN Physical Medicine & Rehabilitation | DX: I69.90 Unspecified sequelae of unspecified cerebrovascular disease (principal); I69.351 Hemiplegia and hemiparesis following cerebral infarction affecting right dominant side (principal); I69.322 Dysarthria following cerebral infarction; Z73.6 Limitation of activities due to disability; I69.393 Ataxia following cerebral infarction; I69.328 Other speech and language deficits following cerebral infarction; I69.318 Other symptoms and signs involving cognitive functions following cerebral infarction; R26.89 Other abnormalities of gait and mobility; R13.12 Dysphagia, oropharyngeal phase; I63.9 Cerebral infarction, unspecified | CPT/HCPCS: 92507; 92526; 97110; 97112; 97129; 97130; 97530; 97535; 97537 ==

== ENCOUNTER → 2025-01-21 08:27 | Outpatient (REF) | payer MEDICARE, BC, SELFPAY | LOC: HWRCS 08:27 | PROVIDERS: ATTENDING PHYSICIAN Internal Medicine Interventional Cardiology; FAMILY PHYSICIAN Family Medicine | DX: Z86.73 Personal history of transient ischemic attack (TIA), and cerebral infarction without residual deficits (principal); E78.5 Hyperlipidemia, unspecified; I10 Essential (primary) hypertension; I65.22 Occlusion and stenosis of left carotid artery | CPT/HCPCS: 78452; 93017; A9500; J2785 ==

== ENCOUNTER 2025-02-19 11:03 | Outpatient (RCR) | payer MEDICARE, BC, SELFPAY | END 2025-02-19 23:59 | disposition home or self-care (01) | LOC: ROT 11:03 | PROVIDERS: ATTENDING PHYSICIAN Physical Medicine & Rehabilitation | DX: I69.351 Hemiplegia and hemiparesis following cerebral infarction affecting right dominant side (principal); I69.322 Dysarthria following cerebral infarction; I69.393 Ataxia following cerebral infarction; Z73.6 Limitation of activities due to disability; I69.328 Other speech and language deficits following cerebral infarction; I69.318 Other symptoms and signs involving cognitive functions following cerebral infarction; R13.12 Dysphagia, oropharyngeal phase; R26.89 Other abnormalities of gait and mobility | CPT/HCPCS: 92507; 92526; 97110; 97112; 97129; 97130; 97530; 97535; 97537 ==

== ENCOUNTER 2025-03-21 08:57 | Outpatient (RCR) | payer MEDICARE, BC, SELFPAY | END 2025-03-21 23:59 | disposition home or self-care (01) | LOC: ROT 08:57 | PROVIDERS: ATTENDING PHYSICIAN Physical Medicine & Rehabilitation | DX: I69.351 Hemiplegia and hemiparesis following cerebral infarction affecting right dominant side (principal); I69.322 Dysarthria following cerebral infarction; I69.398 Other sequelae of cerebral infarction; I69.393 Ataxia following cerebral infarction; R26.89 Other abnormalities of gait and mobility; Z73.6 Limitation of activities due to disability; I69.328 Other speech and language deficits following cerebral infarction; I69.318 Other symptoms and signs involving cognitive functions following cerebral infarction; R13.12 Dysphagia, oropharyngeal phase | CPT/HCPCS: 92507; 97110; 97112; 97116; 97129; 97130; 97530; 97535 ==

== ENCOUNTER 2025-04-18 12:55 | Outpatient (RCR) | payer MEDICARE, BC, SELFPAY | END 2025-04-18 23:59 | disposition home or self-care (01) | LOC: ROT 12:55 | PROVIDERS: ATTENDING PHYSICIAN Physical Medicine & Rehabilitation | DX: I69.351 Hemiplegia and hemiparesis following cerebral infarction affecting right dominant side (principal); I69.322 Dysarthria following cerebral infarction; I69.393 Ataxia following cerebral infarction; Z73.6 Limitation of activities due to disability; I69.328 Other speech and language deficits following cerebral infarction; I69.318 Other symptoms and signs involving cognitive functions following cerebral infarction; R13.12 Dysphagia, oropharyngeal phase; R26.89 Other abnormalities of gait and mobility | CPT/HCPCS: 92507; 97110; 97112; 97116; 97129; 97130; 97530; 97535 ==

== ENCOUNTER 2025-05-03 11:53 | Day surgery (SDC) | payer MEDICARE, BC, SELFPAY ==
--- NOTE | 2025-05-03 13:17 | ITS.CL.IMPLP ---
Center Hole Reamer - Implant Loop
Implant Loop
Procedure Report:
Date of Procedure: May 03, 2025
Primary Care Provider: Dr. Moy Zapata
Primary decorating supervisor: Dr Mehreen Doll
Procedure: Insertable Loop Recorder Implantation
Indication:
Cryptogenic CVA
Procedure:
The patient was brought to the procedure area in a fasting state. The anterior chest was prepped and draped in standard sterile fashion. The fourth intercostal space along the left sternal border was identified and this area was anesthetized with 10
mL of 1% lidocaine. After gathering the skin in this area, a small punch incision was made at approx intercostal space 4-5 at left costo-sternal junction using the provided scalpel/punch tool. The loop recorder was loaded into the tunneling device.
A tunnel was created in the subcutaneous tissue at a 45� angle along the coronal plane away from the sternum and towards the left flank. The tunneling device was inverted and the plunger was depressed, inserting the loop recorder into the
subcutaneous space. The tunneling device was removed. Manual pressure provide hemostasis. Adequate signal was confirmed. The skin was closed with steri-strips. The estimated blood loss was < 1 cc. A clean dressing was placed over the wound.
There were no complications.
Implant:
[employer]onic Reveal LINQ II
Conclusion: Uncomplicated implantation of loop recorder.
Recommendation: Routine ILR care.
Copy:
Dr. Moy Zapata
Dr Mehreen Doll
== END 2025-05-03 13:52 | disposition home or self-care (01) ==
LOC: CATH 11:53
PROVIDERS: ATTENDING PHYSICIAN Internal Medicine Cardiovascular Disease; FAMILY PHYSICIAN Family Medicine; REFERRING PHYSICIAN Internal Medicine Interventional Cardiology
DX: Z09 Encounter for follow-up examination after completed treatment for conditions other than malignant neoplasm (principal); Z86.73 Personal history of transient ischemic attack (TIA), and cerebral infarction without residual deficits; I10 Essential (primary) hypertension
CPT/HCPCS: 33285; C1764

== ENCOUNTER 2025-05-22 13:02 | Outpatient (RCR) | payer MEDICARE, BC, SELFPAY | END 2025-05-22 23:59 | disposition home or self-care (01) | LOC: ROT 13:02 | PROVIDERS: ATTENDING PHYSICIAN Physical Medicine & Rehabilitation | DX: I69.351 Hemiplegia and hemiparesis following cerebral infarction affecting right dominant side (principal); I69.322 Dysarthria following cerebral infarction; I69.393 Ataxia following cerebral infarction; Z73.6 Limitation of activities due to disability; I69.328 Other speech and language deficits following cerebral infarction; I69.318 Other symptoms and signs involving cognitive functions following cerebral infarction; R13.12 Dysphagia, oropharyngeal phase; R26.89 Other abnormalities of gait and mobility | CPT/HCPCS: 92507; 97110; 97112; 97129; 97130; 97530; 97535 ==

== ENCOUNTER 2025-06-20 12:55 | Outpatient (RCR) | payer MEDICARE, BC, SELFPAY | END 2025-06-20 23:59 | disposition home or self-care (01) | LOC: ROT 12:55 | PROVIDERS: ATTENDING PHYSICIAN Physical Medicine & Rehabilitation | DX: I69.351 Hemiplegia and hemiparesis following cerebral infarction affecting right dominant side (principal); I69.322 Dysarthria following cerebral infarction; I69.393 Ataxia following cerebral infarction; Z73.6 Limitation of activities due to disability; I69.328 Other speech and language deficits following cerebral infarction; I69.318 Other symptoms and signs involving cognitive functions following cerebral infarction; R13.12 Dysphagia, oropharyngeal phase; R26.89 Other abnormalities of gait and mobility | CPT/HCPCS: 92507; 97110; 97112; 97129; 97130; 97530; 97535 ==

== ENCOUNTER 2025-07-17 09:54 | Outpatient (RCR) | payer MEDICARE, BC, SELFPAY | END 2025-07-17 23:59 | disposition home or self-care (01) | LOC: ROT 09:54 | PROVIDERS: ATTENDING PHYSICIAN Physical Medicine & Rehabilitation | DX: I69.351 Hemiplegia and hemiparesis following cerebral infarction affecting right dominant side (principal); I69.322 Dysarthria following cerebral infarction; I69.393 Ataxia following cerebral infarction; Z73.6 Limitation of activities due to disability; I69.328 Other speech and language deficits following cerebral infarction; I69.318 Other symptoms and signs involving cognitive functions following cerebral infarction; R13.12 Dysphagia, oropharyngeal phase; R26.89 Other abnormalities of gait and mobility | CPT/HCPCS: 92507; 97110; 97112; 97116; 97129; 97130; 97530; 97535 ==

== ENCOUNTER 2025-08-20 08:22 | Outpatient (RCR) | payer MEDICARE, BC, SELFPAY | END 2025-08-20 23:59 | disposition home or self-care (01) | LOC: ROT 08:22 | PROVIDERS: ATTENDING PHYSICIAN Physical Medicine & Rehabilitation | DX: I69.351 Hemiplegia and hemiparesis following cerebral infarction affecting right dominant side (principal); I69.322 Dysarthria following cerebral infarction; I69.393 Ataxia following cerebral infarction; Z73.6 Limitation of activities due to disability; I69.328 Other speech and language deficits following cerebral infarction; I69.318 Other symptoms and signs involving cognitive functions following cerebral infarction; R13.12 Dysphagia, oropharyngeal phase; R26.89 Other abnormalities of gait and mobility | CPT/HCPCS: 92507; 97110; 97112; 97129; 97130; 97530; 97535 ==

== ENCOUNTER → 2025-09-10 13:36 | Outpatient (REF) | payer MEDICARE, BC, SELFPAY | LOC: REG 13:36 | PROVIDERS: ATTENDING PHYSICIAN Internal Medicine Critical Care Medicine | DX: R06.02 Shortness of breath (principal) | CPT/HCPCS: 71046 ==

== ENCOUNTER 2025-09-20 13:39 | Emergency (ER) | payer MEDICARE, BC, SELFPAY ==
[2025-09-20 13:56] VITALS: BP 137/75
--- NOTE | 2025-09-20 18:09 | ED.GENMED ---
History of Present Illness
General
Chief Complaint: Head Injury
Source: patient
Exam Limitations: none
Time Seen by Provider: 09/20/25 16:26
Nursing documentation reviewed up to this point in time: agreed with
History of Present Illness
History of Present Illness:
70-year-old female presenting to the emergency department today with concerns of hitting her head on a cabinet when standing up quickly hitting the left top of her head did not lose consciousness but has felt 'woozy' since. But a brief episode of
tingling to her for but no longer having significant symptoms no chest pain shortness of breath no neck pain. Patient is on Plavix for previous stroke.
Past History
Past History
ED Past Medical History: Asthma, Cancer (Lymphoma of mesentery), CVA, GERD, HTN, Hypercholesterolemia, Hypothyroidism, Psychiatric (Anxiety) and Other (Previous bile duct stricture, partial thyroidectomy, oopherectomy, hypertension)
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
Social History
Tobacco: Non-smoker
Alcohol: None
Personal:
Living: with family
Employment: Retired
Family History
Family History: Other (Father had a brain aneurysm)
Review of Systems
Review of Systems
Allergies reviewed?: Yes
All Other Systems: ROS reviewed and negative except as documented in HPI and ROS
Phy Exam
Physical Exam
Physical Exam:
GENERAL: Alert , in no apparent distress
EYE: pupils equal and reactive
NECK: Supple, no significant adenopathy.
ENT: o/p clr, mmm.
CARDIAC: Regular rate and rhythm .
LUNGS: Clear breath sounds bilaterally, no acute respiratory distress, no wheezes/rales/rhonchi
ABDOMEN: Soft, without focal tenderness, no r/g, no cvat
NEUROLOGICAL: Alert and oriented, no focal neuro deficits
SKIN: Warm and dry, skin intact.
MUSCULOSKELETAL: No edema, well perfused.
PSYCH: Normal and appropriate interaction.
Course
Orders/Labs/Results
Orders:
Orders
09/20/25 13:59
CT Head W/o Iv Contrast Urgent
Comment:
Reason For Exam: Head injury on plavix
Vital Signs
Initial and Last Documented VS:
Initial Vital Signs
Temp Pulse Resp BP Pulse Ox
98.4 F 55 18 137/75 99
09/20/25 13:56 09/20/25 13:56 09/20/25 13:56 09/20/25 13:56 09/20/25 13:56
Last Documented Vital Signs
Temp Pulse Resp BP Pulse Ox
98.4 F 55 18 137/75 99
09/20/25 13:56 09/20/25 13:56 09/20/25 13:56 09/20/25 13:56 09/20/25 18:10
MDM/Problems Addressed
MDM/Problems Addressed:
70-year-old female presenting to the emergency department after hitting the top of her left head on a piece of furniture prior to arrival. No loss of consciousness. [place] 'woozy'. No specific focal neurologic symptoms. Vital signs normal on
arrival. Head CT without emergent stable for discharge at this time. Return precautions given.
*Pulse Oximetry
SaO2: 99
Oxygen Mode of Delivery: Room air
Patient hypoxic: no (99)
*Critical Care Note
Total Time (30-74mins, 75-104mins- exclusive of procedures): Not Applicable
ED Attending Note
-
Portions of this chart may have been created with voice recognition software.� Occasional wrong word or��sound alike� substitutions may have occurred due to the inherent limitations of voice recognition software.
Discharge Plan
Departure
Patient Disposition: Home (Routine Discharge)
Date of Disposition: 09/20/25
Time of Disposition: 18:09
Patient with high blood pressure during this ER visit?: No
Condition: Good
Covid-19: Not Applicable
Discharge Problem:
Mild closed head injury
Instructions: Concussion, Adult (DC)
Prescriptions:
No Action
trazodone 100 MG tablet
100 mg PO HS
lorazepam 1 MG tablet
1 mg PO HS
bupropion HCl [Wellbutrin XL] 300 mg Tablet Extended Release 24 Hr
300 mg PO DAILY
Arnuity Ellipta 100 mcg/actuation Blister With Device
1 inh INHALATION R DAILYPRN PRN (Reason: sob)
metoprolol succinate 25 mg capsule,sprinkle,ER 24hr
25 mg PO DAILY 14 Days Qty: 14 0RF
levothyroxine 25 mcg Tablet
25 mcg PO MoTuWeThFrSa@0600 30 Days Qty: 26 0RF
acetaminophen 325 mg Tablet
650 mg PO Q4HPRN PRN (Reason: mild pain, headache) 30 Days Qty: 100 0RF
levothyroxine 50 mcg Tablet
50 mcg PO WETZEL@0600 30 Days Qty: 5 0RF
atorvastatin 40 mg Tablet
40 mg PO QPM Qty: 30 0RF
famotidine 20 mg tablet
20 mg PO BID Qty: 60 0RF
clopidogrel 75 mg Tablet
75 mg PO DAILY Qty: 30 0RF
Referrals:
Moy Garcia MD [Family Provider, Family Practice]
Activity Restrictions/Additional Instructions:
You came to the emergency department today with concerns after hitting her head. Here your reassuring CT scan. Please rest over the next few days as symptoms will hopefully improve. Return for any worsening, new or concerning symptoms.
Interventions
Interventions:
*Risk Screen - Suicide Last Done: 09/20/25 13:56
*General Assessment Last Done: 09/20/25 13:56
*Neglect/Abuse Screening Last Done: 09/20/25 13:56
*ED Influenza Vaccine History Last Done: 09/20/25 13:56
Discharge Date and Time
Print Language: TAJ[place]
[2025-09-20 18:35] VITALS: BP 128/67
== END 2025-09-20 18:36 | disposition home or self-care (01) ==
LOC: EMR 13:39
PROVIDERS: EMERGENCY PHYSICIAN Emergency Medicine; FAMILY PHYSICIAN Family Medicine
DX: S09.90XA Unspecified injury of head, initial encounter (principal); W22.09XA Striking against other stationary object, initial encounter; I10 Essential (primary) hypertension; E78.00 Pure hypercholesterolemia, unspecified; J45.909 Unspecified asthma, uncomplicated; E89.0 Postprocedural hypothyroidism; F41.9 Anxiety disorder, unspecified; K21.9 Gastro-esophageal reflux disease without esophagitis; Z79.02 Long term (current) use of antithrombotics/antiplatelets; Z86.73 Personal history of transient ischemic attack (TIA), and cerebral infarction without residual deficits; Z85.72 Personal history of non-Hodgkin lymphomas
CPT/HCPCS: 99284; 70450